=== PATIENT | female | born 1935 | race Caucasian/White ===

== ENCOUNTER → 2016-03-10 | Outpatient (CLI) | payer MEDICARE, OTHER ==
[2016-03-10 07:33] LABS: CH 31.2; CHCM 32.8; HCT 43.9 % (34.0-46.0); HDW 2.34; HGB 14.1 gm/dL (11.4-16.0); MCH 30.8 pg (25.0-35.0); MCHC 32.2 g/dL (31.0-37.0); MCV 95.5 fL (80.0-100.0); Mean Platelet Volume 6.9; RBC 4.59 m/uL (3.80-5.40); RDW 12.8 % (11.5-15.5); WBC 7.9 k/uL (3.8-10.6)
[2016-03-10 07:49] LABS: ALT 42 U/L (9-52); AST 21 U/L (14-36); Alkaline Phosphatase 41 U/L (38-126); Anion Gap 9 mmol/L; Blood Urea Nitrogen 13 mg/dL (7-17); Calcium 9.1 mg/dL (8.4-10.2); Carbon Dioxide 28 mmol/L (22-30); Chloride 105 mmol/L (98-107); Cholesterol 191 mg/dL (<200); Glucose 93 mg/dL (74-99); HDL Cholesterol 70 mg/dL (40-60); Non-African American GFR(MDRD) >60 (>60 ml/min/1.73 sqM); Potassium 4.3 mmol/L (3.5-5.1); Sodium 142 mmol/L (137-145); Total Bilirubin 1.1 mg/dL (0.2-1.3); Triglycerides 112 mg/dL (<150)
[2016-03-10 11:14] LABS: Amorphous Sediment,Urine Many /hpf; Appearance,Urine Turbid (Clear); Bilirubin,Urine Negative (Negative); Glucose,Urine (UA) Negative (Negative); Ketones,Urine Negative (Negative); Leukocyte Esterase,Urine Large (Negative); Mucus,Urine Few /hpf; Nitrite,Urine Negative (Negative); Particle Count 60149; Protein,Urine Trace (Negative); Specific Gravity,Urine 1.021 (1.001-1.035); UA Billing (MACRO vs. MICRO) MICRO; Urobilinogen,Urine <2.0 mg/dL (<2.0); WBC,Urine 59 /hpf (0-5)
[2016-03-10 12:31] LABS: Hemoglobin A1C 5.3 % (4.2-6.1)
--- NOTE | 2016-03-10 14:47 | BD ---
EXAMINATION TYPE: MG DEXA axial skeleton. DATE OF EXAM: 03/10/2016 8:04 AM COMPARISON: NONE CLINICAL HISTORY: Height: 67.5 IN Weight: 215 LBS FRAX RISK QUESTIONS: Alcohol (3 or more units per day): NO Family History (Parent hip fracture): NO Glucocorticoids (More than 3mos): NO (Ex: prednisone, prednisolone, methylprednisolone, dexamethasone, and hydrocortisone). History of Fracture in Adulthood: YES RT ELBOW Secondary Osteoporosis: 1. Type 1 Diabetes: NO 2. Hyperthyroidism: NO 3. Menopause before 45: YES AGE 37 4. Malnutrition: NO 5. Chronic liver disease: NO Rheumatoid Arthritis: NO Current Tobacco Use: NO RISK FACTORS HISTORY OF: Other Fractures since Age 52: YES RT ELBOW When: AGE 62 Active: YES Diet low in dairy products/other sources of calcium: YES Postmenopausal woman: YES AGE 37 Take estrogen and/or progesterone medications: NOT NOW How long: AGE 35 - 39 MEDICATIONS: Additional Medications: VIT D, CLARITIN EXAM MEASUREMENTS: Bone mineral densitometry was performed using the [employer] SPINE System. Bone mineral density as measured about the Lumbar spine is: ----- L1-L4(G/cm2): 1.300 T Score Values are as follows: ----- L2: -0.5 ----- L3: 2.4 ----- L4: 2.1 ----- L1-L4: 1.0 Bone mineral density has: Decreased -0.9% since study of: 01/17/2009 Bone mineral density about the R hip (g/cm2): 1.040 Bone mineral density about the L hip (g/cm2): 0.990 T Score values are as follows: -----R Neck: 0.0 -----L Neck: -0.3 -----R Intertrochanter: 2.0 -----L Intertrochanter: 1.3 Bone mineral density has: Increased 2.0% since study of: 01/17/2009 IMPRESSION: Normal (Values between +1 and -1 indicate normal bone mass) NOTE: T-SCORE=SD OF THE YOUNG ADULT MEAN.
--- NOTE | 2016-03-11 09:41 | MM ---
Reason for exam: screening (asymptomatic). Last mammogram was performed 1 year and 1 month ago. History: Patient is postmenopausal and has history of other cancer at age 75. Physical Findings: A clinical breast exam by your physician is recommended on an annual basis and results should be correlated with mammographic findings. MG 3D Screening Mammo W/Cad Bilateral CC and MLO view(s) were taken. Prior study comparison: February 19, 2015, bilateral MG screening mammo w CAD. February 09, 2014, bilateral MG screening mammo w CAD. There are scattered fibroglandular densities. Finding: There are typically benign vascular calcifications in both breasts. There is no discrete abnormality. ASSESSMENT: Benign, BI-RAD 2 RECOMMENDATION: Routine screening mammogram of both breasts in 1 year.
== END | disposition home or self-care (01) ==
LOC: RADMAMWWP 06:51
PROVIDERS: ATTEND Family Medicine
DX: Z12.31 Encounter for screening mammogram for malignant neoplasm of breast (principal); E55.9 Vitamin D deficiency, unspecified; E78.5 Hyperlipidemia, unspecified
CPT/HCPCS: 80061; 80053; 83036; 84443; 85027; 81001; 82306; 77080; 77063; G0202

== ENCOUNTER → 2017-03-16 | Outpatient (CLI) | payer MEDICARE, OTHER ==
[2017-03-16 09:28] LABS: HCT 41.8 % (34.0-46.0); HGB 13.6 gm/dL (11.4-16.0); MCH 31.4 pg (25.0-35.0); MCHC 32.6 g/dL (31.0-37.0); MCV 96.4 fL (80.0-100.0); Mean Platelet Volume 7.5; Platelet Count 233 k/uL (150-450); RBC 4.34 m/uL (3.80-5.40); RDW 12.6 % (11.5-15.5); WBC 5.1 k/uL (3.8-10.6)
[2017-03-16 09:46] LABS: ALT 32 U/L (9-52); AST 28 U/L (14-36); Alkaline Phosphatase 33 U/L (38-126); Anion Gap 8 mmol/L; Blood Urea Nitrogen 15 mg/dL (7-17); Calcium 9.4 mg/dL (8.4-10.2); Carbon Dioxide 29 mmol/L (22-30); Chloride 105 mmol/L (98-107); Cholesterol 208 mg/dL (<200); Glucose 94 mg/dL (74-99); HDL Cholesterol 67 mg/dL (40-60); LDL Cholesterol,Calculated 128 mg/dL (0-99); Potassium 4.6 mmol/L (3.5-5.1); Sodium 142 mmol/L (137-145); Total Protein 6.7 g/dL (6.3-8.2); Triglycerides 65 mg/dL (<150)
[2017-03-16 18:56] LABS: Hemoglobin A1C 5.4 % (4.0-6.0)
--- NOTE | 2017-03-17 11:00 | MM ---
Reason for exam: screening (asymptomatic). Last mammogram was performed 1 year ago. History: Patient is postmenopausal and has history of other cancer at age 75. Physical Findings: A clinical breast exam by your physician is recommended on an annual basis and results should be correlated with mammographic findings. MG 3D Screening Mammo W/Cad Bilateral CC and MLO view(s) were taken. Prior study comparison: March 10, 2016, bilateral MG 3d screening mammo w/cad. February 19, 2015, bilateral MG screening mammo w CAD. There are scattered fibroglandular densities. Finding: There are typically benign vascular calcifications in both breasts. There is no discrete abnormality. ASSESSMENT: Benign, BI-RAD 2 RECOMMENDATION: Routine screening mammogram of both breasts in 1 year.
== END | disposition home or self-care (01) ==
LOC: RADMAMWWP 08:33
PROVIDERS: ATTEND Family Medicine
DX: Z12.31 Encounter for screening mammogram for malignant neoplasm of breast (principal); I10 Essential (primary) hypertension; Z79.899 Other long term (current) drug therapy
CPT/HCPCS: 36415; 77063; 77067; 80053; 80061; 83036; 84443; 85027

== ENCOUNTER 2017-07-18 09:09 | Emergency (ER) | payer MEDICARE, OTHER ==
[2017-07-18 09:18] VITALS: TEMP 97.4
[2017-07-18] MEDS ORDERED: MORPHINE SULFATE 2 MG/ML SYRINGE IVP STA ×2 (09:43→10:31)
[2017-07-18] MEDS ORDERED: ONDANSETRON 4 MG/2 ML VIAL IVP STA (09:43)
[2017-07-18] MEDS ORDERED: SODIUM CHLORIDE 0.9% 1,000 ML IV STA (09:43)
--- NOTE | 2017-07-18 10:02 | ED ---
General Adult HPI <Sidney Oliveros - Last Filed: 07/18/17 12:45> - General Source: patient, RN notes reviewed Mode of arrival: ambulatory Limitations: no limitations <KrisNadeem - Last Filed: 07/18/17 13:48> - General Chief complaint: Abdominal Pain Stated complaint: Vomiting Time Seen by Provider: 07/18/17 09:34 - History of Present Illness Initial comments: Patient's an 82-year-old female severe past medical history for hypertension, presenting to the emergency room today with chief complaint of lower back pain radiating around to the abdomen. She states that she was at [employer] earlier this morning getting ready when she noticed that the pain was increasing. She states it's worse on the left side radiating around the left side of the abdomen. Patient currently rates it a 11/17. Patient has a history of kidney stones but states is unsure if this is similar pain. She does admit that she had an episode of nausea vomiting still feeling nauseated at this time. She denies any other complaints or symptoms currently. Patient denies any recent fever, chills, shortness of breath, chest pain, numbness or tingling, dysuria or hematuria, constipation or diarrhea, headaches or visual changes, or any other complaints. (Nadeem Ponce) - Related Data Home Medications Medication Instructions Recorded Confirmed Latanoprost [Xalatan 0.005%] 1 drop BOTH EYES HS 07/18/17 07/18/17 Losartan Potassium 100 mg PO DAILY 07/18/17 07/18/17 Omeprazole 20 mg PO DAILY 07/18/17 07/18/17 Renavit Eye Vitamin 1 tab PO BID 07/18/17 07/18/17 Previous Rx's Medication Instructions Recorded Hydrocodone/Acetaminophen [Goltry 1 each PO Q6HR PRN #12 tab 07/18/17 5-325] Ondansetron Odt [Zofran ODT] 4 mg PO Q8HR PRN #15 tab 07/18/17 Tamsulosin [Flomax] 0.4 mg PO DAILY #10 cap 07/18/17 Allergies Allergy/AdvReac Type Severity Reaction Status Date / Time Penicillins Allergy Swelling Verified 07/18/17 11:22 shellfish derived [Lobster] Allergy Unknown Verified 07/18/17 11:22 Sulfa (Sulfonamide Allergy Swelling Verified 07/18/17 11:22 Antibiotics) tuna oil Allergy Unknown Verified 07/18/17 11:22 Review of Systems ROS Other: All systems not noted in ROS Statement are negative. <Sidney Oliveros - Last Filed: 07/18/17 12:45> ROS Other: All systems not noted in ROS Statement are negative. <Nadeem Ponce - Last Filed: 07/18/17 13:48> ROS Statement: Those systems with pertinent positive or pertinent negative responses have been documented in the HPI. Past Medical History Past Medical History: Hypertension Additional Past Medical History / Comment(s): kidney stones, back problems, bulging discs and spurs, History of Any Multi-Drug Resistant Organisms: None Reported Past Surgical History: Appendectomy, Hysterectomy Additional Past Surgical History / Comment(s): vein stripped bilateral legs Past Psychological History: No Psychological Hx Reported Smoking Status: Never smoker Past Alcohol Use History: Rare Past Drug Use History: None Reported <Nadeem Ponce - Last Filed: 07/18/17 13:48> General Exam <Sidney Oliveros - Last Filed: 07/18/17 12:45> Limitations: no limitations <Nadeem Ponce - Last Filed: 07/18/17 13:48> - General Exam Comments Initial Comments: General: The patient is awake and alert, in no distress, and does not appear acutely ill. Eye: Pupils are equal, round and reactive to light, extra-ocular movements are intact. No nystagmus. There is normal conjunctiva bilaterally. No signs of icterus. Ears, nose, mouth and throat: There are moist mucous membranes and no oral lesions. Neck: The neck is supple, there is no tenderness or JVD. Cardiovascular: There is a regular rate and rhythm. No murmur, rub or gallop is appreciated. Respiratory: Lungs are clear to auscultation, respirations are non-labored, breath sounds are equal. No wheezes, stridor, rales, or rhonchi. Gastrointestinal: Soft, non-distended, non-tender abdomen without masses or organomegaly noted. There is no rebound or guarding present. No CVA tenderness. Musculoskeletal: Normal ROM, no tenderness. Strength 5/5. Sensation intact. Pulses equal bilaterally 2+. Neurological: A&O x 3. CN II-XII intact, There are no obvious motor or sensory deficits. Coordination appears grossly intact. Speech is normal. Skin: Skin is warm and dry and no rashes or lesions are noted. Psychiatric: Cooperative, appropriate mood & affect, normal judgment. (Nadeem Ponce) Course <Sidney Oliveros - Last Filed: 07/18/17 12:45> <Nadeem Ponce - Last Filed: 07/18/17 13:48> Vital Signs 07/18/17 07/18/17 07/18/17 09:14 09:35 10:29 Temperature 97.4 F L Pulse Rate 75 65 Respiratory 20 32 H 16 Rate Blood Pressure 180/90 202/88 O2 Sat by Pulse 99 98 Oximetry - Reevaluation(s) Reevaluation #1: 07/18/17 12:45 PA supervision: I did personally do a [id number] evaluation the patient did discuss the findings with the patient and her family. Patient does have left CVA/flank pain consistent with a kidney stone that is found on CAT scan. Patient states the pain initially was not much improved though she is not "screaming anymore". Further pain medication will be given as well as IV hydration. I do agree with the assessment and plan. (Sidney Oliveros) Medical Decision Making - Lab Data Result diagrams: 07/18/17 09:35 07/18/17 09:35 <Sidney Oliveros - Last Filed: 07/18/17 12:45> - Lab Data Result diagrams: 07/18/17 09:35 07/18/17 09:35 <Nadeem Ponce - Last Filed: 07/18/17 13:48> - Medical Decision Making Patient reexamined at this time shows no signs of distress. She states she still expresses some discomfort in left side of the lower back rate around to the front. Patient does note the pain is much improved. Patient CT of the abdomen pelvis does reveal a 2 mm stone in the left UVJ. Case was discussed and seen by family physician Dr. Oliveros. Patient will be discharged home with short prescription of pain medication, Flomax, nausea medication advised follow- up with urology within the next 2 days. Advised return if any symptoms increase or worsen or for new concerns. (Nadeem Ponce) - Lab Data Lab Results 07/18/17 07/18/17 07/18/17 Range/Units 09:35 09:35 09:35 WBC 7.7 (3.8-10.6) k/uL RBC 4.45 (3.80-5.40) m/uL Hgb 14.1 (11.4-16.0) gm/dL Hct 40.7 (34.0-46.0) % MCV 91.5 (80.0-100.0) fL MCH 31.6 (25.0-35.0) pg MCHC 34.5 (31.0-37.0) g/dL RDW 13.1 (11.5-15.5) % Plt Count 294 (150-450) k/uL Neutrophils % 66 % Lymphocytes % 23 % Monocytes % 5 % Eosinophils % 4 % Basophils % 1 % Neutrophils # 5.1 (1.3-7.7) k/uL Lymphocytes # 1.8 (1.0-4.8) k/uL Monocytes # 0.4 (0-1.0) k/uL Eosinophils # 0.3 (0-0.7) k/uL Basophils # 0.0 (0-0.2) k/uL PT (9.0-12.0) sec INR (<1.2) APTT (22.0-30.0) sec Sodium 141 (137-145) mmol/L Potassium 4.5 (3.5-5.1) mmol/L Chloride 102 (98-107) mmol/L Carbon Dioxide 25 (22-30) mmol/L Anion Gap 14 mmol/L BUN 21 H (7-17) mg/dL Creatinine 1.07 H (0.52-1.04) mg/dL Est GFR (CKD-EPI)AfAm 57 (>60 ml/min/1.73 sqM) Est GFR (CKD-EPI)NonAf 49 (>60 ml/min/1.73 sqM) Glucose 134 H (74-99) mg/dL Lactic Ac Sepsis Rflx Plasma Lactic Acid Silvino 3.0 H* (0.7-2.0) mmol/L Calcium 9.7 (8.4-10.2) mg/dL Total Bilirubin 0.9 (0.2-1.3) mg/dL AST 24 (14-36) U/L ALT 34 (9-52) U/L Alkaline Phosphatase 37 L (38-126) U/L Total Protein 7.2 (6.3-8.2) g/dL Albumin 4.5 (3.5-5.0) g/dL Amylase 66 (30-110) U/L Lipase 135 (23-300) U/L Urine Color Urine Appearance (Clear) Urine pH (5.0-8.0) Ur Specific [place] (1.001-1.035) Urine Protein (Negative) Urine Glucose (UA) (Negative) Urine Ketones (Negative) Urine Blood (Negative) Urine Nitrite (Negative) Urine Bilirubin (Negative) Urine Urobilinogen (<2.0) mg/dL Ur Leukocyte Esterase (Negative) Urine RBC (0-5) /hpf Urine WBC (0-5) /hpf Ur Squamous Epith Cells (0-4) /hpf Hyaline Casts (0-2) /lpf Urine Mucus (None) /hpf 07/18/17 07/18/17 07/18/17 Range/Units 09:35 10:22 10:49 WBC (3.8-10.6) k/uL RBC (3.80-5.40) m/uL Hgb (11.4-16.0) gm/dL Hct (34.0-46.0) % MCV (80.0-100.0) fL MCH (25.0-35.0) pg MCHC (31.0-37.0) g/dL RDW (11.5-15.5) % Plt Count (150-450) k/uL Neutrophils % % Lymphocytes % % Monocytes % % Eosinophils % % Basophils % % Neutrophils # (1.3-7.7) k/uL Lymphocytes # (1.0-4.8) k/uL Monocytes # (0-1.0) k/uL Eosinophils # (0-0.7) k/uL Basophils # (0-0.2) k/uL PT 10.3 (9.0-12.0) sec INR 1.1 (<1.2) APTT 21.1 L (22.0-30.0) sec Sodium (137-145) mmol/L Potassium (3.5-5.1) mmol/L Chloride (98-107) mmol/L Carbon Dioxide (22-30) mmol/L Anion Gap mmol/L BUN (7-17) mg/dL Creatinine (0.52-1.04) mg/dL Est GFR (CKD-EPI)AfAm (>60 ml/min/1.73 sqM) Est GFR (CKD-EPI)NonAf (>60 ml/min/1.73 sqM) Glucose (74-99) mg/dL Lactic Ac Sepsis Rflx Y Plasma Lactic Acid Silvino (0.7-2.0) mmol/L Calcium (8.4-10.2) mg/dL Total Bilirubin (0.2-1.3) mg/dL AST (14-36) U/L ALT (9-52) U/L Alkaline Phosphatase (38-126) U/L Total Protein (6.3-8.2) g/dL Albumin (3.5-5.0) g/dL Amylase (30-110) U/L Lipase (23-300) U/L Urine Color Yellow Urine Appearance Clear (Clear) Urine pH 7.5 (5.0-8.0) Ur Specific [place] 1.021 (1.001-1.035) Urine Protein 1+ H (Negative) Urine Glucose (UA) Negative (Negative) Urine Ketones 2+ H (Negative) Urine Blood Moderate H (Negative) Urine Nitrite Negative (Negative) Urine Bilirubin Negative (Negative) Urine Urobilinogen <2.0 (<2.0) mg/dL Ur Leukocyte Esterase Moderate H (Negative) Urine RBC 127 H (0-5) /hpf Urine WBC 13 H (0-5) /hpf Ur Squamous Epith Cells 3 (0-4) /hpf Hyaline Casts 4 H (0-2) /lpf Urine Mucus Rare H (None) /hpf Disposition <Sidney Oliveros - Last Filed: 07/18/17 12:45> Is patient prescribed a controlled substance at d/c from ED?: Yes When asked, does pt state using other controlled substances?: No If prescribed controlled substance>3 days was MAPS reviewed?: Prescribed <3 Days Time of Disposition: 13:47 <Nadeem Ponce - Last Filed: 07/18/17 13:48> Clinical Impression: Kidney stone Disposition: HOME SELF-CARE Condition: Good Instructions: Kidney Stones (ED) Additional Instructions: Please use medication as prescribed follow-up the family doctor or urologist of the next 2 days. Please return here to the emergency room for any symptoms increase worsen appropriate concerns. Prescriptions: Hydrocodone/Acetaminophen [Goltry 5-325] 1 each PO Q6HR PRN #12 tab PRN Reason: Pain Ondansetron Odt [Zofran ODT] 4 mg PO Q8HR PRN #15 tab PRN Reason: Nausea Tamsulosin [Flomax] 0.4 mg PO DAILY #10 cap Referrals: Ina Wilson MD [Primary Care Provider] - 1-2 days Neftaly Fall MD [STAFF PHYSICIAN] - 1-2 days
[2017-07-18 10:11] LABS: Basophils % (A) 1 %; Eosinophils # (A) 0.3 k/uL (0-0.7); Eosinophils % (A) 4 %; HCT 40.7 % (34.0-46.0); HGB 14.1 gm/dL (11.4-16.0); Lymphocytes # (A) 1.8 k/uL (1.0-4.8); Lymphocytes % (A) 23 %; MCH 31.6 pg (25.0-35.0); MCHC 34.5 g/dL (31.0-37.0); MCV 91.5 fL (80.0-100.0); Monocytes # (A) 0.4 k/uL (0-1.0); Monocytes % (A) 5 %; Neutrophils # (A) 5.1 k/uL (1.3-7.7); Neutrophils % (A) 66 %; Platelet Count 294 k/uL (150-450); RBC 4.45 m/uL (3.80-5.40); RDW 13.1 % (11.5-15.5); WBC 7.7 k/uL (3.8-10.6)
[2017-07-18 10:20] LABS: Albumin 4.5 g/dL (3.5-5.0); Calcium 9.7 mg/dL (8.4-10.2); Potassium 4.5 mmol/L (3.5-5.1); Total Bilirubin 0.9 mg/dL (0.2-1.3); Total Protein 7.2 g/dL (6.3-8.2)
--- NOTE | 2017-07-18 10:22 | CT ---
EXAMINATION TYPE: CT abdomen pelvis wo con DATE OF EXAM: 07/18/2017 COMPARISON: NONE HISTORY: Left sided flank pain with nausea CT DLP: 1036 mGycm Automated exposure control for dose reduction was used. TECHNIQUE: Helical acquisition of images was performed from the lung bases through the pelvis. FINDINGS: KIDNEYS, URETERS, AND BLADDER: There is mild/moderate left-sided hydronephrosis and hydroureter down to a 2 mm obstructing calcification at the proximal left ureterovesical junction. The hydronephrosis is accompanied with mild renal enlargement and mild/moderate subcapsular/perirenal edematous change. There are no drainable fluid collections. No gas collections. There are no other calcifications withi n the kidneys or ureters or bladder. LUNG BASES: No significant abnormality is appreciated. LIVER/GB: No significant abnormality is appreciated. PANCREAS: No significant abnormality is seen. SPLEEN: No significant abnormality is seen. ADRENALS: No significant abnormality is seen PERITONEAL CAVITY: No free air is visualized ABDOMINAL ADENOPATHY: None visualized REPRODUCTIVE ORGANS: No significant abnormality is seen PELVIC ADENOPATHY: None visualized. OSSEOUS STRUCTURES: No significant abnormality is seen. BOWEL: Unremarkable. IMPRESSION: OBSTRUCTIVE LEFT UROPATHY.
[2017-07-18 10:26] LABS: INR 1.1 (<1.2); Prothrombin Time 10.3 sec (9.0-12.0)
[2017-07-18 10:41] LABS: Partial Thromboplastin Time 21.1 sec (22.0-30.0)
[2017-07-18 11:07] LABS: Appearance,Urine Clear (Clear); Bilirubin,Urine Negative (Negative); Blood,Urine Moderate (Negative); Color,Urine Yellow; Glucose,Urine (UA) Negative (Negative); Hyaline Casts,Urine 4 /lpf (0-2); Ketones,Urine 2+ (Negative); Leukocyte Esterase,Urine Moderate (Negative); Mucus,Urine Rare /hpf; Nitrite,Urine Negative (Negative); PH, Urine 7.5 (5.0-8.0); Protein,Urine 1+ (Negative); RBC,Urine 127 /hpf (0-5); Specific Gravity,Urine 1.021 (1.001-1.035); Squamous Epithelial Cell,Urine 3 /hpf (0-4); Urobilinogen,Urine <2.0 mg/dL (<2.0); WBC,Urine 13 /hpf (0-5)
[2017-07-18] MEDS ORDERED: KETOROLAC 30 MG/ML 1 ML VIAL IVP STA (11:41)
[2017-07-18] MEDS ORDERED: TAMSULOSIN 0.4 MG CAP.ER.24H PO STA (11:41)
[2017-07-18] MEDS ORDERED: SODIUM CHLORIDE 0.9% 500 ML IV STA (12:16)
[2017-07-18] MEDS ORDERED: ACETAMINOPHEN IV (For NPO) 1,000 MG in EMPTY BAG 1 BAG IVPB STA (12:17)
[2017-07-18] MEDS ORDERED: fentaNYL (PF) 50 MCG/ML 2 ML AMP IV STA (13:44)
[2017-07-18 13:58] VITALS: BP 190/95; PULSE 67; RESP 18
== END 2017-07-18 14:26 | disposition home or self-care (01) ==
LOC: EC 09:09
DX: N20.0 Calculus of kidney (principal); I10 Essential (primary) hypertension; Z79.899 Other long term (current) drug therapy; Z88.0 Allergy status to penicillin; Z91.013 Allergy to seafood; Z88.2 Allergy status to sulfonamides; Z91.09 Other allergy status, other than to drugs and biological substances
CPT/HCPCS: 36415; 80053; 82150; 83605; 83690; 85025; 85610; 85730; 81001; 87086; 74176; 99284; 96374; 96375 ×4; 96376; 96361 ×3; J2405; J3010; J1885; J2270; J0131

== ENCOUNTER → 2018-04-29 | Outpatient (CLI) | payer MEDICARE, OTHER ==
[2018-04-29 08:42] LABS: Calcium 9.4 mg/dL (8.4-10.2); Potassium 4.9 mmol/L (3.5-5.1); Total Bilirubin 0.8 mg/dL (0.2-1.3); Total Protein 6.9 g/dL (6.3-8.2)
[2018-04-29 08:54] LABS: HCT 42.2 % (34.0-46.0); HGB 13.4 gm/dL (11.4-16.0); MCH 30.4 pg (25.0-35.0); MCHC 31.8 g/dL (31.0-37.0); MCV 95.9 fL (80.0-100.0); Mean Platelet Volume 7.1; Platelet Count 252 k/uL (150-450); RDW 13.2 % (11.5-15.5); WBC 5.1 k/uL (3.8-10.6)
--- NOTE | 2018-04-29 11:08 | MM ---
Reason for exam: screening (asymptomatic). Last mammogram was performed 1 year and 2 months ago. History: Patient is postmenopausal and has history of other cancer at age 75. Physical Findings: A clinical breast exam by your physician is recommended on an annual basis and results should be correlated with mammographic findings. MG 3D Screening Mammo W/Cad Bilateral CC and MLO view(s) were taken. Prior study comparison: March 16, 2017, bilateral MG 3d screening mammo w/cad. March 10, 2016, bilateral MG 3d screening mammo w/cad. The breast tissue is heterogeneously dense. This may lower the sensitivity of mammography. There are benign appearing round vascular calcifications bilaterally. There is no discrete abnormality. ASSESSMENT: Benign, BI-RAD 2 RECOMMENDATION: Routine screening mammogram of both breasts in 1 year.
[2018-04-29 20:04] LABS: Hemoglobin A1C 5.7 % (4.0-6.0)
== END | disposition home or self-care (01) ==
LOC: RADMAMWWP 07:39
PROVIDERS: ATTEND Family Medicine
DX: Z12.31 Encounter for screening mammogram for malignant neoplasm of breast (principal); I10 Essential (primary) hypertension; Z79.899 Other long term (current) drug therapy
CPT/HCPCS: 36415; 77063; 77067; 80053; 80061; 83036; 85027

== ENCOUNTER 2019-03-10 11:18 | Emergency (ER) | payer MEDICARE, OTHER ==
[2019-03-10 11:24] VITALS: RESP 18; TEMP 97.9
[2019-03-10] MEDS ORDERED: HYDROmorphone 1 MG/ML 1 ML SYRINGE IVP STA (11:51)
[2019-03-10] MEDS ORDERED: PANTOPRAZOLE 40 MG/10 ML VIAL IVP STA (11:51)
[2019-03-10] MEDS ORDERED: Acetaminophen-Codeine 300-30mg TAB PO STA (11:51)
[2019-03-10] MEDS ORDERED: SODIUM CHLORIDE 0.9% 1,000 ML IV STA (11:51)
[2019-03-10] MEDS ORDERED: ONDANSETRON 4 MG/2 ML VIAL IVP STA (11:54)
--- NOTE | 2019-03-10 11:54 | ED ---
Abdominal Pain HPI - General Chief Complaint: Abdominal Pain Stated Complaint: abdominal pain/vomiting Time Seen by Provider: 03/10/19 11:42 Source: patient Mode of arrival: ambulatory Limitations: no limitations - History of Present Illness Initial Comments: Patient is an 83-year-old female with history of kidney stones and chronic back pain presenting to the emergency department with a chief complaint of back pain and abdominal pain. Patient reports she developed sudden onset left paraspinal pain in the lumbar region that radiates across the left flank region and to the groin. Patient states this feels somewhat like her pre-his kidney stones. Patient does report increased frequency and urgency but denies any dysuria. Does report nausea with one episode of nonbilious, nonbloody vomiting. Denies any diarrhea. Denies night sweats fevers or chills. Denies hematuria, hematochezia or melena. Denies any chest pain or shortness of breath. - Related Data Home Medications Medication Instructions Recorded Confirmed Latanoprost [Xalatan 0.005%] 1 drop BOTH EYES HS 07/18/17 07/18/17 Losartan Potassium 100 mg PO DAILY 07/18/17 07/18/17 Omeprazole 20 mg PO DAILY 07/18/17 07/18/17 Renavit Eye Vitamin 1 tab PO BID 07/18/17 07/18/17 Previous Rx's Medication Instructions Recorded Hydrocodone/Acetaminophen [[place] 1 each PO Q6HR PRN #12 tab 07/18/17 5-325] Ondansetron Odt [Zofran ODT] 4 mg PO Q8HR PRN #15 tab 07/18/17 Tamsulosin [Flomax] 0.4 mg PO DAILY #10 cap 07/18/17 Allergies Allergy/AdvReac Type Severity Reaction Status Date / Time Penicillins Allergy Swelling Verified 03/10/19 11:24 shellfish derived [Lobster] Allergy Unknown Verified 03/10/19 11:24 Sulfa (Sulfonamide Allergy Swelling Verified 03/10/19 11:24 Antibiotics) tuna oil Allergy Unknown Verified 03/10/19 11:24 Review of Systems ROS Statement: Those systems with pertinent positive or pertinent negative responses have been documented in the HPI. ROS Other: All systems not noted in ROS Statement are negative. Past Medical History Past Medical History: Hypertension Additional Past Medical History / Comment(s): kidney stones, back problems, bulging discs and spurs, History of Any Multi-Drug Resistant Organisms: None Reported Past Surgical History: Appendectomy, Hysterectomy Additional Past Surgical History / Comment(s): vein stripped bilateral legs Past Psychological History: No Psychological Hx Reported Smoking Status: Never smoker Past Alcohol Use History: Rare Past Drug Use History: None Reported General Exam Limitations: no limitations General appearance: alert, in no apparent distress, obese Head exam: Present: atraumatic, normocephalic, normal inspection Eye exam: Present: normal appearance, PERRL, EOMI Pupils: Present: normal accommodation ENT exam: Present: normal exam, mucous membranes moist Neck exam: Present: normal inspection, full ROM Respiratory exam: Present: normal lung sounds bilaterally. Absent: respiratory distress, rales Cardiovascular Exam: Present: regular rate, normal rhythm, normal heart sounds GI/Abdominal exam: Present: soft, tenderness (Left lower quadrant left groin left flank pain.). Absent: distended Extremities exam: Present: normal inspection, full ROM Back exam: Present: normal inspection, tenderness, paraspinal tenderness (Left paraspinal tenderness in the lumbar region.). Absent: full ROM (Limited range of motion with extension) Neurological exam: Present: alert, oriented X3 Psychiatric exam: Present: normal affect, normal mood Skin exam: Present: warm, dry, intact, normal color Course Vital Signs 03/10/19 11:22 Temperature 97.9 F Pulse Rate 69 Respiratory 18 Rate Blood Pressure 182/79 O2 Sat by Pulse 96 Oximetry Medical Decision Making - Medical Decision Making Patient is an 83-year-old female presenting to the emergency department with a chief complaint of abdominal pain. In the ED patient was found to have left- sided CVA tenderness along with left flank pain. Rest of physical examination was unremarkable. Patient was given analgesia, fluids and antiemetics. On reevaluation patient reports improvement in symptoms. CT does show a 2 mm renal stone at the UVJ with mild left-sided hydronephrosis. CBC does indicate mild leukocytosis secondary to vomiting. Patient advised to drink lots of fluids. Given Tylenol 3 starter pack for pain control. UA does show moderate amounts of blood and red blood cells. Patient advised to follow-up with urology. Strict return parameters were thoroughly discussed with patient was understanding and agreeable. Case discussed with physician. - Lab Data Result diagrams: 03/10/19 11:58 03/10/19 11:58 Lab Results 03/10/19 03/10/19 03/10/19 Range/Units 11:58 11:58 11:58 WBC 12.4 H (3.8-10.6) k/uL RBC 4.45 (3.80-5.40) m/uL Hgb 13.8 (11.4-16.0) gm/dL Hct 42.0 (34.0-46.0) % MCV 94.3 (80.0-100.0) fL MCH 31.1 (25.0-35.0) pg MCHC 32.9 (31.0-37.0) g/dL RDW 12.6 (11.5-15.5) % Plt Count 283 (150-450) k/uL Neutrophils % 88 % Lymphocytes % 7 % Monocytes % 3 % Eosinophils % 1 % Basophils % 1 % Neutrophils # 10.9 H (1.3-7.7) k/uL Lymphocytes # 0.9 L (1.0-4.8) k/uL Monocytes # 0.4 (0-1.0) k/uL Eosinophils # 0.1 (0-0.7) k/uL Basophils # 0.1 (0-0.2) k/uL Sodium 139 (137-145) mmol/L Potassium 4.8 (3.5-5.1) mmol/L Chloride 108 H (98-107) mmol/L Carbon Dioxide 23 (22-30) mmol/L Anion Gap 8 mmol/L BUN 27 H (7-17) mg/dL Creatinine 1.04 (0.52-1.04) mg/dL Est GFR (CKD-EPI)AfAm 58 (>60 ml/min/1.73 sqM) Est GFR (CKD-EPI)NonAf 51 (>60 ml/min/1.73 sqM) Glucose 145 H (74-99) mg/dL Calcium 9.2 (8.4-10.2) mg/dL Total Bilirubin 0.8 (0.2-1.3) mg/dL AST 35 (14-36) U/L ALT 29 (4-34) U/L Alkaline Phosphatase 36 L (38-126) U/L Total Protein 7.4 (6.3-8.2) g/dL Albumin 4.3 (3.5-5.0) g/dL Amylase 63 (30-110) U/L Lipase 121 (23-300) U/L Urine Color Yellow Urine Appearance Cloudy H (Clear) Urine pH 5.5 (5.0-8.0) Ur Specific [place] 1.028 (1.001-1.035) Urine Protein 1+ H (Negative) Urine Glucose (UA) Negative (Negative) Urine Ketones Negative (Negative) Urine Blood Moderate H (Negative) Urine Nitrite Negative (Negative) Urine Bilirubin Negative (Negative) Urine Urobilinogen <2.0 (<2.0) mg/dL Ur Leukocyte Esterase Moderate H (Negative) Urine RBC 59 H (0-5) /hpf Urine WBC 10 H (0-5) /hpf Ur Squamous Epith Cells 5 H (0-4) /hpf Urine Bacteria Occasional H (None) /hpf Urine Mucus Rare H (None) /hpf Disposition Clinical Impression: Renal stone, Nausea & vomiting Disposition: HOME SELF-CARE Condition: Stable Instructions (If sedation given, give patient instructions): Kidney Stones (ED) Additional Instructions: Please take medication as directed. Follow-up with a urologist. Drink a lot of fluids. Return to emergency department if symptoms worsen. Is patient prescribed a controlled substance at d/c from ED?: No Referrals: Christel Wakefield MD [Primary Care Provider] - 1-2 days Neftaly Fall MD [STAFF PHYSICIAN] - 1-2 days Time of Disposition: 14:03
[2019-03-10] MEDS ORDERED: KETOROLAC 30 MG/ML 1 ML VIAL IVP STA (12:02)
[2019-03-10 12:11] LABS: Basophils # (A) 0.1 k/uL (0-0.2); Basophils % (A) 1 %; Eosinophils # (A) 0.1 k/uL (0-0.7); Eosinophils % (A) 1 %; HGB 13.8 gm/dL (11.4-16.0); Lymphocytes # (A) 0.9 k/uL (1.0-4.8); Lymphocytes % (A) 7 %; MCH 31.1 pg (25.0-35.0); MCHC 32.9 g/dL (31.0-37.0); MCV 94.3 fL (80.0-100.0); Mean Platelet Volume 7.6; Monocytes # (A) 0.4 k/uL (0-1.0); Monocytes % (A) 3 %; Neutrophils # (A) 10.9 k/uL (1.3-7.7); Neutrophils % (A) 88 %; Platelet Count 283 k/uL (150-450); RBC 4.45 m/uL (3.80-5.40); RDW 12.6 % (11.5-15.5); WBC 12.4 k/uL (3.8-10.6)
[2019-03-10 12:20] LABS: Appearance,Urine Cloudy (Clear); Bacteria,Urine Occasional /hpf; Bilirubin,Urine Negative (Negative); Blood,Urine Moderate (Negative); Color,Urine Yellow; Glucose,Urine (UA) Negative (Negative); Ketones,Urine Negative (Negative); Leukocyte Esterase,Urine Moderate (Negative); Mucus,Urine Rare /hpf; Nitrite,Urine Negative (Negative); PH, Urine 5.5 (5.0-8.0); Protein,Urine 1+ (Negative); RBC,Urine 59 /hpf (0-5); Specific Gravity,Urine 1.028 (1.001-1.035); Squamous Epithelial Cell,Urine 5 /hpf (0-4); Urobilinogen,Urine <2.0 mg/dL (<2.0); WBC,Urine 10 /hpf (0-5)
[2019-03-10 12:21] LABS: Albumin 4.3 g/dL (3.5-5.0); Calcium 9.2 mg/dL (8.4-10.2); Potassium 4.8 mmol/L (3.5-5.1); Total Bilirubin 0.8 mg/dL (0.2-1.3); Total Protein 7.4 g/dL (6.3-8.2)
[2019-03-10] MEDS ORDERED: MORPHINE SULFATE 4 MG/ML SYRINGE IVP STA (13:11)
--- NOTE | 2019-03-10 13:16 | CT ---
EXAMINATION TYPE: CT abdomen pelvis w con DATE OF EXAM: 03/10/2019 COMPARISON: 07/18/2017 HISTORY: Left sided pain CT DLP: 1853.6 mGycm CONTRAST: CT scan of the abdomen and pelvis is performed without Oral Contrast and with IV Contrast, patient in jected with 100 mL of Isovue 300. FINDINGS: LUNG BASES-: No visible nodule. No infiltrate. LIVER/GB: No calcified gallstones. No space occupying hepatic lesion. Biliary tree is of normal ca liber. PANCREAS: No inflammation. No distinct mass. SPLEEN: No splenic enlargement. No lesion seen. ADRENALS: No nodule. No thickening. KIDNEYS/BLADDER :mild left-sided hydronephrosis suggested with the tiny 2 mm left UVJ calculus. No ad ditional calculi seen. 1 cm left renal cyst. No distinct solid renal mass. Urinary bladder grossly u nremarkable. BOWEL: Normal bowel caliber. No inflammation. Sigmoid diverticulosis without diverticulitis. GENITAL ORGANS: No gross abnormality. LYMPH NODES: No greater than 1cm abdominal or pelvic lymph nodes are appreciated. AORTA: No significant abnormality. OSSEOUS STRUCTURES: No significant abnormality is seen. OTHER: No significant additional abnormality is seen. IMPRESSION: 1. mild left-sided hydronephrosis suggested with the tiny 2 mm left UVJ calculus.
[2019-03-10] MEDS ORDERED: ACET/COD 300 MG/30 MG STARTER PACK 6 TAB BTL PO STA (14:01)
[2019-03-10 14:31] VITALS: BP 154/77; PULSE 61
== END 2019-03-10 14:32 | disposition home or self-care (01) ==
LOC: EC 11:18
DX: N13.2 Hydronephrosis with renal and ureteral calculous obstruction (principal); I10 Essential (primary) hypertension; Z79.899 Other long term (current) drug therapy; Z88.0 Allergy status to penicillin; Z88.2 Allergy status to sulfonamides; Z91.013 Allergy to seafood; Z90.89 Acquired absence of other organs; Z90.710 Acquired absence of both cervix and uterus
CPT/HCPCS: 99284 ×2; 96374 ×2; 96375 ×4; 96361 ×2; 36415; 80053; 82150; 83690; 85025; 81001; 74177; J2270; J2405; J1885; C9113; Q9967

== ENCOUNTER → 2019-08-17 | Outpatient (CLI) | payer MEDICARE, OTHER ==
--- NOTE | 2019-08-17 13:49 | MM ---
Reason for exam: screening (asymptomatic). Last mammogram was performed 1 year and 4 months ago. History: Patient is postmenopausal and has history of other cancer at age 75. Took estrogen for 3 years. Physical Findings: A clinical breast exam by your physician is recommended on an annual basis and results should be correlated with mammographic findings. MG 3D Screening Mammo W/Cad Bilateral CC and MLO view(s) were taken. Prior study comparison: April 29, 2018, bilateral MG 3d screening mammo w/cad. March 16, 2017, bilateral MG 3d screening mammo w/cad. The breast tissue is heterogeneously dense. This may lower the sensitivity of mammography. There is no discrete abnormality. No significant changes when compared with prior studies. ASSESSMENT: Negative, BI-RAD 1 RECOMMENDATION: Routine screening mammogram of both breasts in 1 year.
== END | disposition home or self-care (01) ==
LOC: RADMAMWWP 08:38
PROVIDERS: ATTEND Family Medicine
DX: Z12.39 Encounter for other screening for malignant neoplasm of breast (principal)
CPT/HCPCS: 77063; 77067

== ENCOUNTER → 2020-09-13 | Outpatient (CLI) | payer MEDICARE, OTHER ==
--- NOTE | 2020-09-17 08:52 | MM ---
Reason for exam: screening (asymptomatic). Last mammogram was performed 1 year and 1 month ago. History: Patient is postmenopausal and has history of other cancer at age 75. Took estrogen for 3 years. Physical Findings: A clinical breast exam by your physician is recommended on an annual basis and results should be correlated with mammographic findings. MG 3D Screening Mammo W/Cad Bilateral CC and MLO view(s) were taken. Prior study comparison: August 17, 2019, bilateral MG 3d screening mammo w/cad. April 29, 2018, bilateral MG 3d screening mammo w/cad. There are scattered fibroglandular densities. No significant changes when compared with prior studies. ASSESSMENT: Negative, BI-RAD 1 RECOMMENDATION: Routine screening mammogram of both breasts in 1 year.
== END | disposition home or self-care (01) ==
LOC: RADMAMWWP 10:35
PROVIDERS: ATTEND Family Medicine
DX: Z12.31 Encounter for screening mammogram for malignant neoplasm of breast (principal); Z79.818 Long term (current) use of other agents affecting estrogen receptors and estrogen levels; Z78.0 Asymptomatic menopausal state; Z85.9 Personal history of malignant neoplasm, unspecified
CPT/HCPCS: 77063; 77067

== ENCOUNTER → 2021-06-04 | Outpatient (CLI) | payer MEDICARE, OTHER ==
[2021-06-04 14:05] VITALS: BP 158/85; PULSE 74; RESP 18; TEMP 98.5
--- NOTE | 2021-06-04 14:28 | P.CON ---
Consult Note - . 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 Patient states her lower back pain a 6 out of 10 in intensity, constant, achy in character localized in the lower aspects of her lumbar spine where it meets her tailbone and radiation of pain to the right side of her lumbar spine and the left lower extremity. Pain is provoked with cold weather, standing for 10 minutes or walking for 5 minutes. Pain is relieved with medications (Tylenol, ibuprofen), topicals, pain patches, injections in the past, ice, physical therapy which she is currently in for carpal tunnel syndrome, chiropractic treatments 5 years ago, use of a lumbar support brace, repositioning and rest. PMH: HTN, Vitamin D Deficiency, Glaucoma PSH: Hysterectomy, BL Carpal Tunnel Release SH: Non smoker, occasional ETOH use, no illicit drug use. Pt is not .0 FH: Non contributory All: See list Meds: See list REVIEW OF ORGAN SYSTEMS: CONSTITUTIONAL: No fevers or chills. No recent weight loss. HEENT: No visual acuity loss, eye pain, difficulties with hearing. No nosebleeds. No difficulty swallowing. RESPIRATORY: Denies any troubles with breathing or dyspnea on exertion. CARDIOVASCULAR: Denies any chest pain, palpitations, or recent heart attacks. GASTROINTESTINAL: Denies fatty food intolerance. Has change in bowel habits and gas bloat. GENITOURINARY: Denies any blood in urine. Has increased urinary frequency. NEUROLOGICAL: + numbness and tingling along the distal extremities. No seizure disorders or headaches. MUSCULOSKELETAL: + back pain SKIN: No skin cancer. No rash. PSYCHIATRIC: Denies current depression or suicidal thoughts. ENDOCRINE: Denies current thyroid disorders. Denies any blood sugar glucose intolerance. HEME/LYMPHATIC: Denies any lumps and bumps around the neck. History of deep venous thrombosis. ALLERGY/IMMUNOLOGY: No immunoglobulin therapy. No immune deficiencies. BREAST: Denies current breast lumps, pain or nipple discharge. Physical Examinations : Constitutional : Cooperative , not in acute distress . HEENT: Neck supple. No Lymphadenopathy. Normal thyroid size . Eyes no ptosis , no icterus, no photophobia . Hearing intact. Normal oropharynx. No Thrush. Respiratory : Chest clear to auscultations bilaterally. No wheezing. No rhonchi. Cardiovascular : Regular rate and rhythm , S1 / S2. No S3 . No S4. Gastrointestinal : Abdomen soft. No tenderness. Bowel sounds x 4. No organomegaly . Genitourinary : Deferred. Neurologic : Cranial nerve II to XII intact. No focal neurological deficits. Psychiatric : alert & oriented x 3. Matching mood & appropriate affect. Judgment & insight intact. Lymphatic No Lymphadenopathy. Musculoskeletal : Cervical Spine Motor strength in the deltoid and biceps: Normal right side. Normal Left side Motor strength biceps and the wrist extensors: Normal right side . Normal left side Motor strength in the triceps muscle: Normal right side. Normal left side Deep tendon reflexes: Normal at the biceps. Normal at Brachioradialis. Normal at triceps Cervical facet loading test: positive bilaterally Spurling test: positive bilaterally Neck distraction test: positive bilaterally Kalpana sign: positive bilaterally Lumbar spine Motor strength lower extremities ,thigh and legs 5/5 Right side , 5/5 Left side Deep tendon reflexes : Normal Knee Jerk. Normal Ankle Jerk Vertebral body tenderness over Lumbar facet Loading Test: positive Right / positive Left Range of motion of the lumbar spine Flexion 30 degrees, extension 10 degrees Straight Leg Raise test: Left/ Right positive at degree Leonard test: positive right / positive left. Severe tenderness over the Sacroiliac joint on the Right / Left sides Gaenslen test: positive R>L Seated flexion test: positive bilaterally. Imaging: MRI without contrast from 11/27/2019 reviewed. Assessment/ Plan : Sacroiliitis, Lumbar Disc Herniation, Lumbar Facet Arthropathy Recommendation of BL SI joint injection with TPIs of L3-L5 BL. Risks, benefits of procedure discussed and patient verbalized understanding. Denies aspirin or anti- coagulant use. Denies medical history of diabetes. All questions answered. I have spent greater than 50 minutes on patient care today. Dr Silva was available by phone for the evaluation of this patient. The time was used to review the medical records including relevant urine studies and Prescription history (MAPs), review of the available imaging, evaluation and examination of the patient, coordination of care with the medical staff and if applicable referring physicians, as well as creation of the medical record PQRS Measure Charge Sheet Mode of Arrival: Ambulatory - Pain Location Right Lower Back Non-Pharmacological Interventions: Chiropractic Treatment, Elevation, Ice, Inactivity, Physical Therapy, Sitting Pharmacological Interventions: PRN Medication, Topical Medication PQRS Narrative: Smoking Status Never smoker Blood Pressure 158/85 Pain Intensity [Right Lower 6 Back] Scale Used Numeric (1 - 10) Hx Alcohol Use (MH) No Home Medications: Ambulatory Orders Hydrocodone/Acetaminophen [Salem 5-325] 1 each PO Q6HR PRN #12 tab 07/18/17 Latanoprost [Xalatan 0.005%] 1 drop BOTH EYES HS 07/18/17 Losartan Potassium 100 mg PO DAILY 07/18/17 Omeprazole 20 mg PO DAILY 07/18/17 Ondansetron Odt [Zofran ODT] 4 mg PO Q8HR PRN #15 tab 07/18/17 Renavit Eye Vitamin 1 tab PO BID 07/18/17 Tamsulosin [Flomax] 0.4 mg PO DAILY #10 cap 07/18/17
== END ==
LOC: PNWHC3 13:16
PROVIDERS: ATTEND Specialist
DX: M51.26 Other intervertebral disc displacement, lumbar region (principal); M46.1 Sacroiliitis, not elsewhere classified; M47.816 Spondylosis without myelopathy or radiculopathy, lumbar region; I10 Essential (primary) hypertension; Z88.0 Allergy status to penicillin; Z91.013 Allergy to seafood; Z88.2 Allergy status to sulfonamides
CPT/HCPCS: 99211

== ENCOUNTER 2021-07-01 08:27 | Day surgery (SDC) | payer MEDICARE, OTHER ==
[~2021-07-01 08:27] MED LIST: LACTATED RINGERS 1,000 ML IV SCH
[2021-07-01] MEDS ORDERED: LACTATED RINGERS 1,000 ML IV ONE (08:50)
[2021-07-01 08:52] VITALS: TEMP 97.8
[2021-07-01] MEDS ORDERED: IOPAMIDOL M200 10 ML VIAL ONE (08:54)
[2021-07-01] MEDS ORDERED: ROPIVACAINE 5MG/ML 20ML VIAL ONE (08:54)
[2021-07-01] MEDS ORDERED: MIDAZOLAM 2 MG/2 ML VIAL ONE (08:54)
[2021-07-01] MEDS ORDERED: fentaNYL (PF) 50 MCG/ML 2 ML AMP ONE (08:54)
[2021-07-01] MEDS ORDERED: methylPREDNISolone ACETATE 40 MG/ML 1 ML VIAL ONE (08:54)
--- NOTE | 2021-07-01 08:55 | P.PCN ---
Date of Procedure: 07/01/21 Description of Procedure: Procedure: Sacroiliac joint injection bilateral Preoperative diagnosis: Sacroiliitis Postoperative diagnosis: Sacroiliitis Imaging: Fluoroscopy was used, images where saved to the medical record Complications: none Anesthesia: 1% lidocaine 5cc + Versed and fentanyl Description of the procedure: procedure risk and benefits discussed with the patient, including but not limited, risk of infection and bleeding, and allergic reaction to the medication and incomplete pain relief. Patient agreed and signed consent. Patient was taken to the room and placed in a prone position. Chlorhexidine was used to cleanse the skin. Under sterile conditions patient skin was anesthetized 1% lidocaine. S ubcutaneous tissues were also anesthetized with a total 5 mL of 1% lidocaine. After that, a 22-gauge spinal needle was advanced through the anesthetized location under fluoroscopic guidance. Needle was advanced into the inferior portion of the sacroiliac joint. IV contrast was used to confirm spread within the joint. After adequate spread was achieved, 2.5 ML's of 0.5% ropivacaine with 40 mg of depomedrol was injected into the joint (steroid split between both sides). Patient tolerated the procedure well. Sent to the recovery room in stable condition. Patient will follow up as directed.
--- NOTE | 2021-07-01 09:08 | P.PCN ---
Date of Procedure: 07/01/21 Description of Procedure: Preoperative Diagnosis: myofascial pain syndrome of lumbar paraspinal muscles Postoperative diagnosis: Same Anesthesia: Local Surgeon: Teodoro Hernandez MD Indications for procedure: This is a 86-year-old patient with myofascial pain and palpable trigger points in lumbar paraspinal muscles. The patient consents for an injection after an explanation of risks including but not limited to bleeding and infection, benefits, and alternatives and the patient has signed a consent form indicating understanding of all of them. Description of procedure: After informed consent was obtained the patient's painful area was sterilely prepped in the usual fashion with ChloraPrep. bilateral lumbar trigger points were identified via palpation of the paraspinal muscles and marked sterilely. Each trigger point was injected with a 25-gauge one and a half inch needle. At that point a solution consisting of 9ml of 0.5% ropivacaine was distributed evenly over the trigger points. The patient's vital signs were stable afterwards and the procedure was tolerated well. Patient was discharged home with follow-up instructions.
[2021-07-01] MEDS ORDERED: IV FLUID CONTINUATION 1,000 ML IV ONE ×3 (09:13)
[2021-07-01 09:16] VITALS: RESP 16
[2021-07-01 09:28] VITALS: BP 180/79; PULSE 70
--- NOTE | 2021-07-01 09:58 | FL ---
Fluoroscopy HISTORY: Pain 6 seconds fluoroscopy time supplied to the referring clinician. 2 intraoperative C-arm images docume nt the procedure. See dictated report from anesthesia.
== END 2021-07-01 10:02 | disposition home or self-care (01) ==
LOC: ORPAIN 08:27
PROVIDERS: ATTEND Hospitalist
DX: M46.1 Sacroiliitis, not elsewhere classified (principal); M79.18 Myalgia, other site
CPT/HCPCS: 20553; J2250; J1030; J3010; Q9966; J2795; G0260; 99152

== ENCOUNTER → 2021-08-25 | Outpatient (CLI) | payer MEDICARE, OTHER ==
[2021-08-25 10:23] VITALS: BP 198/89; PULSE 67; RESP 18; TEMP 98
--- NOTE | 2021-08-25 14:24 | P.PAINPG ---
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 She states she experienced 30% pain relief x 1 day s/p procedure. Pain level is currently at 8/10 in intensity, localized to the lower back, R > L, achy with accompanying stiffiness. No radiation of pain. Pain is provoked by walking/standing for periods of 10 min or more. Pain is alleviated with medications (Motrin, Tylenol), icy hot topicals, repositioning and rest. Interventional pain procedures completed include BL SI joint, TPI of Lumbar spine Patient is currently on Tylenol, Motrin OTC Patient denies any side effects of the medication(s), denies excessive drowsiness or sleepiness, denies suicidal ideation and reports that the current pain medication is helping to control the pain and improve activities of daily living. Patient denies any motor or sensory deficits. Patient denies any fever or night sweats, denies any change in the bowel movements or urination. Physical Examination: -Constitutional: Cooperative. Not in acute distress . - Neurologic: Cranial nerve II to XII intact. No focal neurological deficits. - Psychatric: Alert & oriented x 3. Matching mood & appropriate affect. Judgment and insight intact. - Musculoskeletal: Cervical spine: Muscle bulk/ tone/ strength in the bilateral upper extremities normal Vertebral body tenderness to palpation over Spurling test positive Distraction test positive Facet loading test positive Thoracic spine Muscle bulk / tone/ strength in the bilateral paraspinal muscles normal Vertebral body tender to palpation over Facet loading test positive Lumbar spine: Motor bulk/ tone/ strength lower extremities , thigh and legs : 5/5 Deep tendon reflexes : Normal Knee Jerk. Normal Ankle Jerk . Vertebral body tenderness to palpation over Lumbar Facet Loading Test positive Straight Leg Raise: positive at 30 degrees right side/ left side Gaenslen's Test positive Sacral spine : Severe tenderness over the Sacroiliac joint: right side / left side Range of motion: Flexion of the lumbar spine <60 degrees Range of motion: Extension of the lumbar spine <20 degrees Gaenslen's Test positive on R side Rizwan's Test positive Leonard test: positive right side / left side +R Thigh Thrust Test R Sacral Thrust Test Assessment and plan: Chronic low back pain secondary to lumbar degenerative disc disease , lumbar spondylosis with facet arthropathy without myelopathy Recommendation of R SI joint injection. May need a series, up to every 3 mo, for optimal pain relief. Risks, benefits of procedure discussed and pt verbalized understanding. Denies anticoagulant use or medical history of diabetes. All patient questions answered MAPS reviewed and it was appropriate. Prescription refill for Lidoderm 5% apply to AA QAM, remove at bedtime #30 w 1 refill I have spent less than 30 minutes on patient care today. Dr Silva was available by phone for the evaluation of this patient. The time was used to review the medical records including relevant urine studies and Prescription history (MAPs), review of the available imaging, evaluation and examination of the patient, coordination of care with the medical staff and if applicable referring physicians, as well as creation of the medical record PQRS Narrative: Smoking Status Never smoker Hx Alcohol Use (MH) No Home Medications: Ambulatory Orders Latanoprost [Xalatan 0.005%] 1 drop BOTH EYES HS 07/18/17 Losartan Potassium 100 mg PO QAM 07/18/17 Omeprazole 20 mg PO DAILY PRN 07/18/17 Renavit Eye Vitamin 1 tab PO BID 07/18/17 Acetaminophen [Tylenol] 325 - 650 mg PO Q6H PRN 06/30/21 Ibuprofen 200 - 400 mg PO Q6H PRN 06/30/21 Loratadine [Claritin] 10 mg PO DAILY 06/30/21 Metoprolol Succinate [Toprol XL] 25 mg PO QAM 06/30/21 Controlled Substance Measures - Controlled Substance Measures Is patient prescribed a controlled substance at discharge?: No
== END ==
LOC: PNWHC3 09:52
PROVIDERS: ATTEND Specialist
DX: M51.36 Other intervertebral disc degeneration, lumbar region (principal); M47.816 Spondylosis without myelopathy or radiculopathy, lumbar region; G89.29 Other chronic pain; Z88.0 Allergy status to penicillin; Z88.1 Allergy status to other antibiotic agents; Z88.2 Allergy status to sulfonamides; Z91.013 Allergy to seafood
CPT/HCPCS: 99211

== ENCOUNTER → 2021-09-16 | Outpatient (CLI) | payer MEDICARE, OTHER ==
--- NOTE | 2021-09-17 08:17 | MM ---
Reason for Exam: Screening (asymptomatic). Last screening mammogram was performed 12 month(s) ago. Patient History: Menarche at age 15. First Full-Term at age 24. Left ovary removed at age 37. Right ovary removed at age 37. Hysterectomy at age 37. Postmenopausal. Other cancer, age 75. Patient used Estrogen for 3 years. Risk Values: Bela 5 year model risk: 1.3%. NCI Lifetime model risk: 1.4%. Prior Study Comparison: 04/29/2018 Bilateral Screening Mammogram, [facility]. 08/17/2019 Bilateral Screening Mammogram, [facility]. 09/13/2020 Bilateral Screening Mammogram, [facility]. Tissue Density: There are scattered fibroglandular densities. Findings: Analyzed By CAD. There is no suspicious group of microcalcifications or new suspicious mass in either breast. No significant change from prior exams. Overall Assessment: Negative, BI-RAD 1 Management: Screening Mammogram of both breasts in 1 year. A clinical breast exam by your physician is recommended on an annual basis and results should be correlated with mammographic findings. Electronically signed and approved by: Edenilson Celis D.O.
== END | disposition home or self-care (01) ==
LOC: RADMAMWWP 10:41
PROVIDERS: ATTEND Family Medicine
DX: Z12.31 Encounter for screening mammogram for malignant neoplasm of breast (principal); Z78.0 Asymptomatic menopausal state
CPT/HCPCS: 77063; 77067

== ENCOUNTER → 2021-10-23 | Outpatient (CLI) | payer MEDICARE, OTHER ==
[2021-10-23 09:34] VITALS: BP 155/85; PULSE 63; RESP 18; TEMP 98.5
--- NOTE | 2021-10-23 13:33 | P.PAINPG ---
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 Pt states she experienced 0 % pain relief x 3 wks s/p procedure. Pain level is currently at 8/10 in intensity, constant, stabbing in character w shooting towards the BLEs, R >L. Pain is provoked by standing/ walking. Pain is alleviated with ice, home stretching regimen, repositioning, lidoderm patches, medications (Neurontin) and rest. Interventional pain procedures completed include BL SI injection Patient is currently on Neurontin Patient denies any side effects of the medication(s), denies excessive drowsiness or sleepiness, denies suicidal ideation and reports that the current pain medication is helping to control the pain and improve activities of daily living. Patient denies any motor or sensory deficits. Patient denies any fever or night sweats, denies any change in the bowel movements or urination. Physical Examination: -Constitutional: Cooperative. Not in acute distress . - Neurologic: Cranial nerve II to XII intact. No focal neurological deficits. - Psychatric: Alert & oriented x 3. Matching mood & appropriate affect. Judgment and insight intact. - Musculoskeletal: Cervical spine: Muscle bulk/ tone/ strength in the bilateral upper extremities normal Vertebral body tenderness to palpation over Spurling test positive Distraction test positive Facet loading test positive Thoracic spine Muscle bulk / tone/ strength in the bilateral paraspinal muscles normal Vertebral body tender to palpation over Facet loading test positive Lumbar spine: Motor bulk/ tone/ strength lower extremities , thigh and legs : 5/5 Deep tendon reflexes : Normal Knee Jerk. Normal Ankle Jerk . Vertebral body tenderness to palpation over Lumbar Facet Loading Test positive R lumbar paraspinal TTP L2- S1 Straight Leg Raise: positive at 30 degrees right side/ left side Gaenslen's Test positive Sacral spine : Severe tenderness over the Sacroiliac joint: right side / left side Range of motion: Flexion of the lumbar spine <60 degrees Range of motion: Extension of the lumbar spine <20 degrees Gaenslen's Test positive Rizwan's Test positive Leonard test: positive right side / left side Thigh Thrust Test Sacral Thrust Test Assessment and plan: Chronic low back pain secondary to lumbar degenerative disc disease , lumbar spondylosis with facet arthropathy without myelopathy Recommendation of TPIs of R L2-S1. May need a series of injections, up to 4 within a 12 mo period, for optimal pain relief. Risks, benefits of procedure discussed and pt verbalized understanding. Denies anticoagulant use or medical history of diabetes. All patient questions answered MAPS reviewed and it was appropriate. I have spent less than 30 minutes on patient care today. Dr Silva was available by phone for the evaluation of this patient. The time was used to review the medical records including relevant urine studies and Prescription history (MAPs), review of the available imaging, evaluation and examination of the patient, coordination of care with the medical staff and if applicable referring physicians, as well as creation of the medical record PQRS Narrative: Smoking Status Never smoker Hx Alcohol Use (MH) No Home Medications: Ambulatory Orders Latanoprost [Xalatan 0.005%] 1 drop BOTH EYES HS 07/18/17 Losartan Potassium 100 mg PO QAM 07/18/17 Omeprazole 20 mg PO DAILY PRN 07/18/17 Renavit Eye Vitamin 1 tab PO BID 07/18/17 Acetaminophen [Tylenol] 325 - 650 mg PO Q6H PRN 06/30/21 Ibuprofen 200 - 400 mg PO Q6H PRN 06/30/21 Loratadine [Claritin] 10 mg PO DAILY 06/30/21 Metoprolol Succinate [Toprol XL] 25 mg PO QAM 06/30/21 Lidocaine 5% Patch [Lidoderm] 1 each TP DAILY PRN 09/29/21 predniSONE See Taper PO DAILY 09/29/21 Controlled Substance Measures - Controlled Substance Measures Is patient prescribed a controlled substance at discharge?: No
== END ==
LOC: PNWHC3 08:16
PROVIDERS: ATTEND Specialist
DX: M47.816 Spondylosis without myelopathy or radiculopathy, lumbar region (principal); M51.36 Other intervertebral disc degeneration, lumbar region; G89.29 Other chronic pain; Z88.0 Allergy status to penicillin; Z88.1 Allergy status to other antibiotic agents; Z88.2 Allergy status to sulfonamides; Z91.013 Allergy to seafood
CPT/HCPCS: 99211

== ENCOUNTER 2021-12-02 09:34 | Day surgery (SDC) | payer MEDICARE, OTHER ==
[~2021-12-02 09:34] MED LIST changes: +LIDOCAINE 1% (10MG/ML) FOR IV START INTRADERMA PRN
[2021-12-02 10:46] VITALS: TEMP 97.3
[2021-12-02] MEDS ORDERED: ROPIVACAINE 5 MG/ML 20 ML AMPULE ONE (10:56)
[2021-12-02] MEDS ORDERED: TRIAMCINOLONE ACETONIDE 40 MG/ML 1 ML VIAL ONE (10:56)
[2021-12-02] MEDS ORDERED: MIDAZOLAM 2 MG/2 ML VIAL ONE (10:56)
[2021-12-02] MEDS ORDERED: LACTATED RINGERS 1,000 ML IV SCH (11:00)
[2021-12-02] MEDS ORDERED: IV FLUID CONTINUATION 1,000 ML IV ONE (11:09)
--- NOTE | 2021-12-02 11:10 | P.PCN ---
Date of Procedure: 12/02/21 Description of Procedure: Pre and postop diagnosis: Myofascial pain syndrome Procedure: Right side lumbar Trigger point injections X 6 Muscle group right side paraspinal muscle, and right side iliocostalis lumborum Surgeon: Carine Apple Anesthesia: Versed 1 mg sedation Supervision start time: 1057 Sedation supervision ended time: 1104 Complications: None Estimated blood loss: None Specimen removed: None Procedure indications: Patient had a history of myofascial pain syndrome. Patient tried conservative therapy. Came here for intervention procedure for better pain relief. Procedure description: Patient was seen and identified in the holding area risk benefits competitions alternative discussed with the patient. Patient agreed to proceed for the procedure signed the consent. Patient taken to the procedure area. Timeout was completed. A total number of 6- trigger point area was marked with a sterile marker. After ChloraPrep used to clean the area. Critical pause was taken. Using 25-gauge 1-1/2 [address] needle b[address] half way. Needle entered in each market site 2 mL of block solution injected at each level. The block solution containing 12ml of 0.5% preservative-free ropivacaine with Kenlog 40 MG. Needle removed intact skin cleaned and Band-Aid applied. Patient tolerated the procedure well. Disposition: Patient discharge home after meeting the discharge criteria from the recovery. Patient scheduled to follow up with the pain clinic in 4 weeks for follow-up visit.
[2021-12-02 11:13] VITALS: RESP 18
[2021-12-02 11:28] VITALS: BP 149/70; PULSE 63
== END 2021-12-02 11:40 | disposition home or self-care (01) ==
LOC: ORPAIN 09:34
DX: M47.817 Spondylosis without myelopathy or radiculopathy, lumbosacral region (principal); M79.18 Myalgia, other site
CPT/HCPCS: 20553; J2250; J3301; J2795

== ENCOUNTER 2021-12-20 14:22 | Emergency (ER) | payer MEDICARE, OTHER ==
[2021-12-20] MEDS ORDERED: SODIUM CHLORIDE 0.9% 1,000 ML IV STA (16:18)
[2021-12-20] MEDS ORDERED: MORPHINE SULFATE 4 MG/ML SYRINGE IV STA (16:18)
[2021-12-20 16:56] LABS: Basophils # (A) 0.1 k/uL (0-0.2); Basophils % (A) 1 %; Eosinophils # (A) 0.3 k/uL (0-0.7); Eosinophils % (A) 4 %; HGB 14.1 gm/dL (11.4-16.0); Lymphocytes # (A) 1.5 k/uL (1.0-4.8); Lymphocytes % (A) 21 %; MCH 31.4 pg (25.0-35.0); MCHC 33.5 g/dL (31.0-37.0); Mean Platelet Volume 7.6; Monocytes # (A) 0.3 k/uL (0-1.0); Monocytes % (A) 5 %; Neutrophils # (A) 4.8 k/uL (1.3-7.7); Neutrophils % (A) 67 %; Platelet Count 246 k/uL (150-450); RBC 4.47 m/uL (3.80-5.40); RDW 13.3 % (11.5-15.5); WBC 7.1 k/uL (3.8-10.6)
[2021-12-20 16:59] LABS: Appearance,Urine Clear (Clear); Bilirubin,Urine Negative (Negative); Blood,Urine Negative (Negative); Color,Urine Yellow; Glucose,Urine (UA) Negative (Negative); Ketones,Urine Negative (Negative); Leukocyte Esterase,Urine Small (Negative); Mucus,Urine Rare /hpf; Nitrite,Urine Negative (Negative); Protein,Urine Trace (Negative); RBC,Urine 1 /hpf (0-5); Specific Gravity,Urine 1.024 (1.001-1.035); Squamous Epithelial Cell,Urine 3 /hpf (0-4); Urobilinogen,Urine <2.0 mg/dL (<2.0); WBC,Urine 7 /hpf (0-5)
[2021-12-20 17:06] LABS: INR 0.9 (<1.2); Partial Thromboplastin Time 24.1 sec (22.0-30.0); Potassium 4.3 mmol/L (3.5-5.1); Prothrombin Time 9.9 sec (9.0-12.0); Total Bilirubin 0.6 mg/dL (0.2-1.3); Total Protein 6.6 g/dL (6.3-8.2)
--- NOTE | 2021-12-20 17:18 | XR ---
EXAMINATION TYPE: XR KUB DATE OF EXAM: 12/20/2021 COMPARISON: NONE HISTORY: Flank pain TECHNIQUE: 2 views FINDINGS: There is no sign of intestinal obstruction or pneumoperitoneum. Fecal pattern is normal. No evidence of a mass. There is slight lumbar levoscoliosis. There is some spurring in the lumbar spine . No compression fracture. Sacroiliac joints are intact. There is acetabular spurring. No calcification seen over the kidneys. IMPRESSION: Nonacute abdomen.
--- NOTE | 2021-12-20 18:11 | US ---
EXAMINATION TYPE: US kidneys/renal and bladder DATE OF EXAM: 12/20/2021 COMPARISON: CT 2019 CLINICAL HISTORY: eval for hydro/stone. bilateral flank pain/back pa. EXAM MEASUREMENTS: Right Kidney: 13.2 x 5.5 x 6.5 cm Left Kidney: 12.4 x 5.7 x 5.7 cm Difficult and limited study due to patient body habitus Right Kidney: no hydronephrosis or masses seen Left Kidney: 2 small echogenic foci seen measuring 0.4mm, one superior pole and one inferior pole Bladder: wnl Bilateral Jets seen: right jet seen, left jet not seen IMPRESSION: Nonobstructing left renal calculus. No evidence of renal mass. No hydronephrosis.
[2021-12-20 18:13] VITALS: RESP 18; TEMP 98.2
--- NOTE | 2021-12-20 19:33 | CT ---
EXAMINATION TYPE: CT angio thor/abd pel aorta DATE OF EXAM: 12/20/2021 COMPARISON: None HISTORY: chest and back pain CT DLP: 2682.8 mGycm Automated exposure control for dose reduction was used. CONTRAST: Performed with IV Contrast, patient injected with 80 mL of Isovue 370. Images obtained from the thoracic inlet to the floor the pelvis without and subsequently with the IV contrast. There are Three-D postprocessed images. There is some interstitial infiltrate and subsegmental atelectasis at the lung bases. No pleural effu dominique or pneumothorax. No mediastinal adenopathy. There are no hilar masses. Heart size is fairly norm al. Liver spleen pancreas and stomach and gallbladder appear intact. The bile ducts are not dilated. Ther e is no adrenal mass. Kidneys of normal size. No hydronephrosis. The ureters are not dilated. No retr operitoneal adenopathy. The bladder distends smoothly. No inguinal hernia. No free fluid in the pelvi s. No pelvic mass. There are numerous sigmoid diverticula. No diverticulitis. Appendix not clearly seen. No sign of thickened appendix. There is contrast opacification of the thoracic abdominal aorta. No aneurysm or dissection. No fillin g defect in the pulmonary arteries. There is arterial flow in the celiac artery and superior mesenter ic artery. There is arterial flow in the renal and iliac and femoral arteries. There is arterial flow in the inferior mesenteric artery. No aneurysm or dissection. No hemodynamic stenosis. IMPRESSION: Negative CT angiogram of the chest abdomen pelvis. No evidence of arterial aneurysm or dissection. No evidence of pulmonary embolism. Colonic diverticulosis without diverticulitis. Interstitial infiltrates and atelectasis at the lung bases.
[2021-12-20] MEDS ORDERED: NITROFURANTOIN MONOHYD/M-CRYST 100 MG CAP PO STA (19:44)
[2021-12-20] MEDS ORDERED: ACET/COD 300 MG/30 MG STARTER PACK 6 TAB BTL PO STA (19:45)
--- NOTE | 2021-12-20 19:46 | ED ---
General Adult HPI - General Chief complaint: Abdominal Pain Stated complaint: Possible kidney stone Time Seen by Provider: 12/20/21 15:59 Source: patient, RN notes reviewed, old records reviewed Mode of arrival: ambulatory Limitations: no limitations - History of Present Illness Initial comments: Patient is an 86-year-old female who presents emergency Department concerned that she may have kidney stones. Is presenting with bilateral back pain. State s it has been ongoing for 1-2 days. Somewhat worse with movement. Denies any dysuria or hematuria. Denies any nausea or vomiting. Denies any diarrhea. Does have a history of chronic back pain, hand pain which is she sees a pain doctor. Denies any saddle anesthesia. Denies any urinary retention, bowel retention. Has no other acute complaints at this time. She is concerned that she may have kidney stones, but does admit that normally she is nauseous when these are causing issues. Describes the pain is achy, sharp. Presents for further evaluation of this time. - Related Data Home Medications Medication Instructions Recorded Confirmed Latanoprost [Xalatan 0.005%] 1 drop BOTH EYES HS 07/18/17 12/01/21 Losartan Potassium 100 mg PO QAM 07/18/17 12/01/21 Omeprazole 20 mg PO DAILY PRN 07/18/17 12/01/21 Renavit Eye Vitamin 1 tab PO BID 07/18/17 12/01/21 Acetaminophen [Tylenol] 325 - 650 mg PO Q6H PRN 06/30/21 12/01/21 Ibuprofen 200 - 400 mg PO Q6H PRN 06/30/21 12/01/21 Loratadine [Claritin] 10 mg PO DAILY 06/30/21 12/01/21 Metoprolol Succinate [Toprol XL] 25 mg PO QAM 06/30/21 12/01/21 Lidocaine 5% Patch [Lidoderm] 1 each TP DAILY PRN 09/29/21 12/01/21 Gabapentin [Neurontin] 100 mg PO BID 12/01/21 12/01/21 Previous Rx's Medication Instructions Recorded Nitrofurantoin Monohyd/M-Cryst 100 mg PO Q12HR 3 Days #6 cap 12/20/21 [Macrobid] Allergies Allergy/AdvReac Type Severity Reaction Status Date / Time clindamycin Allergy Severe Rash/Hives Verified 12/20/21 14:41 Sulfa (Sulfonamide Allergy Severe Swelling Verified 12/20/21 14:41 Antibiotics) Penicillins Allergy Swelling Verified 12/20/21 14:41 shellfish derived [Lobster] Allergy Unknown Verified 12/20/21 14:41 tuna oil Allergy Unknown Verified 12/20/21 14:41 Review of Systems ROS Statement: Those systems with pertinent positive or pertinent negative responses have been documented in the HPI. Review of Systems: CONST: Denies fever EYES: Denies blurry vision ENT: Denies nasal congestion C/V: Denies Chest pain RESP: Denies shortness of breath GI: Denies abdominal pain : Denies dysuria SKIN: Denies rash. MSK: Endorses back pain NEURO: Denies headache ROS Other: All systems not noted in ROS Statement are negative. 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 BILATERAL CATARACT. LASER PROCEDURE LEFT GLAUCOMA Past Anesthesia/Blood Transfusion Reactions: No Reported Reaction Past Psychological History: No Psychological Hx Reported Smoking Status: Never smoker Past Alcohol Use History: None Reported Past Drug Use History: None Reported General Exam - General Exam Comments Initial Comments: General: Appears in no acute distress. HEAD: Normal with no signs of head trauma. EYES: PERRLA, EOMI, conjunctiva normal, no discharge. ENT: Hearing grossly intact, normal oropharynx. RESPIRATORY: Clear breath sounds bilaterally. No wheezes, rales, or rhonchi. C/V: Regular rate and rhythm. S1 and S2 auscultated, no edema, peripheral pulses 2+ and intact throughout ABD: Abd is soft, nontender, nondistended EXT: Patient has bilateral paraspinal muscle tenderness palpation in the mid lumbar spine. No midline tenderness. No radiation. Worse with movement. Pelvis stable. No midline cervical, thoracic, lumbar spine tenderness palpation. SKIN: No rashes or lesions observed on exposed skin. NEURO: Alert and oriented 4. Limitations: no limitations Course Vital Signs 12/20/21 12/20/21 12/20/21 14:37 18:13 20:31 Temperature 98.1 F 98.2 F 98.2 F Pulse Rate 77 70 68 Respiratory 20 18 18 Rate Blood Pressure 176/79 191/92 179/84 O2 Sat by Pulse 99 97 96 Oximetry Medical Decision Making - Medical Decision Making Based on the patient's presentation and physical exam, I'm concerned for possible kidney stone but pain could be secondary to muscle skeletal pain. We will obtain abdominal laboratory studies, abdominal x-ray, ultrasound. She'll be given IV fluids as well as pain medications. She was in agreement this plan. Vital signs within acceptable limits. KUB is interpreted by myself reveals no obvious bowel obstruction, no bony traumatic process, no constipation. Nonacute abdomen. No obvious stone seen. Ultrasound of the bladder, kidneys reveals nonobstructing left renal calculi but otherwise no acute findings. Laboratory studies were remarkable for a possible early urinary tract infection with a small amount of leukocyte esterase and WBCs present. Reevaluation come patient is still having pain. She is hypertensive as well. Discussed obtain CT imaging which we agreed with. He was a delay in obtaining CT imaging of the abdomen due to higher acuity patients, however when CT was eventually obtained as interpreted by myself that showed no evidence of acute aortic injury, no acute intra-abdominal process. No evidence of acute infection. Negative for dissection or aneurysm. No evidence stones. On reevaluation, I discussed results of the patient. I believe her pain is likely secondary to muscle skeletal causes. She was in agreement this plan. She'll be discharged home at this time with strict follow-up precautions. Recommended follow-up with her pain doctor. She'll be given Tylenol 3's for home. She was in agreement with this plan. Patient had no red flag symptoms to suggest cauda equina syndrome. I instructed the patient to follow up with their PCP in the next 1-3 days. I explained that the patient should return to the emergency department if they experience any worsening symptoms. Strict return precautions were discussed with the patient. The patient expressed understanding of these instructions. I answered all questions that the patient had. The patient was discharged home in good condition with their prescriptions and follow up information. - Lab Data Result diagrams: 12/20/21 16:49 12/20/21 16:49 Lab Results 12/20/21 12/20/21 12/20/21 Range/Units 16:29 16:49 16:49 WBC 7.1 (3.8-10.6) k/uL RBC 4.47 (3.80-5.40) m/uL Hgb 14.1 (11.4-16.0) gm/dL Hct 42.0 (34.0-46.0) % MCV 94.0 (80.0-100.0) fL MCH 31.4 (25.0-35.0) pg MCHC 33.5 (31.0-37.0) g/dL RDW 13.3 (11.5-15.5) % Plt Count 246 (150-450) k/uL MPV 7.6 Neutrophils % 67 % Lymphocytes % 21 % Monocytes % 5 % Eosinophils % 4 % Basophils % 1 % Neutrophils # 4.8 (1.3-7.7) k/uL Lymphocytes # 1.5 (1.0-4.8) k/uL Monocytes # 0.3 (0-1.0) k/uL Eosinophils # 0.3 (0-0.7) k/uL Basophils # 0.1 (0-0.2) k/uL PT 9.9 (9.0-12.0) sec INR 0.9 (<1.2) APTT 24.1 (22.0-30.0) sec Sodium (137-145) mmol/L Potassium (3.5-5.1) mmol/L Chloride (98-107) mmol/L Carbon Dioxide (22-30) mmol/L Anion Gap mmol/L BUN (7-17) mg/dL Creatinine (0.52-1.04) mg/dL Est GFR (CKD-EPI)AfAm (>60 ml/min/1.73 sqM) Est GFR (CKD-EPI)NonAf (>60 ml/min/1.73 sqM) Glucose (74-99) mg/dL Calcium (8.4-10.2) mg/dL Total Bilirubin (0.2-1.3) mg/dL AST (14-36) U/L ALT (4-34) U/L Alkaline Phosphatase (38-126) U/L Total Protein (6.3-8.2) g/dL Albumin (3.5-5.0) g/dL Amylase (30-110) U/L Lipase (23-300) U/L Urine Color Yellow Urine Appearance Clear (Clear) Urine pH 6.0 (5.0-8.0) Ur Specific Winters 1.024 (1.001-1.035) Urine Protein Trace H (Negative) Urine Glucose (UA) Negative (Negative) Urine Ketones Negative (Negative) Urine Blood Negative (Negative) Urine Nitrite Negative (Negative) Urine Bilirubin Negative (Negative) Urine Urobilinogen <2.0 (<2.0) mg/dL Ur Leukocyte Esterase Small H (Negative) Urine RBC 1 (0-5) /hpf Urine WBC 7 H (0-5) /hpf Ur Squamous Epith Cells 3 (0-4) /hpf Urine Mucus Rare H (None) /hpf 12/20/21 Range/Units 16:49 WBC (3.8-10.6) k/uL RBC (3.80-5.40) m/uL Hgb (11.4-16.0) gm/dL Hct (34.0-46.0) % MCV (80.0-100.0) fL MCH (25.0-35.0) pg MCHC (31.0-37.0) g/dL RDW (11.5-15.5) % Plt Count (150-450) k/uL MPV Neutrophils % % Lymphocytes % % Monocytes % % Eosinophils % % Basophils % % Neutrophils # (1.3-7.7) k/uL Lymphocytes # (1.0-4.8) k/uL Monocytes # (0-1.0) k/uL Eosinophils # (0-0.7) k/uL Basophils # (0-0.2) k/uL PT (9.0-12.0) sec INR (<1.2) APTT (22.0-30.0) sec Sodium 140 (137-145) mmol/L Potassium 4.3 (3.5-5.1) mmol/L Chloride 105 (98-107) mmol/L Carbon Dioxide 28 (22-30) mmol/L Anion Gap 7 mmol/L BUN 22 H (7-17) mg/dL Creatinine 0.88 (0.52-1.04) mg/dL Est GFR (CKD-EPI)AfAm 70 (>60 ml/min/1.73 sqM) Est GFR (CKD-EPI)NonAf 61 (>60 ml/min/1.73 sqM) Glucose 105 H (74-99) mg/dL Calcium 9.0 (8.4-10.2) mg/dL Total Bilirubin 0.6 (0.2-1.3) mg/dL AST 28 (14-36) U/L ALT 25 (4-34) U/L Alkaline Phosphatase 44 (38-126) U/L Total Protein 6.6 (6.3-8.2) g/dL Albumin 4.0 (3.5-5.0) g/dL Amylase 63 (30-110) U/L Lipase 165 (23-300) U/L Urine Color Urine Appearance (Clear) Urine pH (5.0-8.0) Ur Specific Winters (1.001-1.035) Urine Protein (Negative) Urine Glucose (UA) (Negative) Urine Ketones (Negative) Urine Blood (Negative) Urine Nitrite (Negative) Urine Bilirubin (Negative) Urine Urobilinogen (<2.0) mg/dL Ur Leukocyte Esterase (Negative) Urine RBC (0-5) /hpf Urine WBC (0-5) /hpf Ur Squamous Epith Cells (0-4) /hpf Urine Mucus (None) /hpf Disposition Clinical Impression: UTI (urinary tract infection), Back pain Disposition: HOME SELF-CARE Condition: Good Prescriptions: Nitrofurantoin Monohyd/M-Cryst [Macrobid] 100 mg PO Q12HR 3 Days #6 cap Is patient prescribed a controlled substance at d/c from ED?: No Referrals: Christel Wakefield MD [Primary Care Provider] - 1-2 days Time of Disposition: 19:30
[2021-12-20 20:33] VITALS: BP 179/84; PULSE 68
== END 2021-12-20 20:33 | disposition home or self-care (01) ==
LOC: EC 14:22
DX: N20.0 Calculus of kidney (principal); N39.0 Urinary tract infection, site not specified; I10 Essential (primary) hypertension; Z79.891 Long term (current) use of opiate analgesic; Z91.013 Allergy to seafood; Z88.1 Allergy status to other antibiotic agents; Z88.2 Allergy status to sulfonamides; Z88.0 Allergy status to penicillin; Z79.899 Other long term (current) drug therapy
CPT/HCPCS: 96361; 96374; 99284; 36415; 80053; 82150; 83690; 85025; 85610; 85730; 81001; 74018; 76770; 71275; 74174; J2270; Q9967; 99285

== ENCOUNTER → 2021-12-25 | Outpatient (CLI) | payer MEDICARE, OTHER ==
[2021-12-25 11:23] VITALS: BP 149/89; PULSE 96; RESP 18; TEMP 98.1
--- NOTE | 2021-12-25 14:23 | P.PAINPG ---
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 90% x 2 wks s/p procedure. Pain level is currently at 8 /10 in intensity, constant, R lower lumbar spine, sharp in character w shooting occasionally towards the LLE. Pain is provoked by standing/ walking for periods of 10 min or more. Pain is alleviated with ice, topicals, sitting, use of a wheelchair for ambulation, repositioning and rest. Interventional pain procedures completed include BL SI x1, R SI x1, R Lumbar TPIs x1 Patient is currently on Lidoderm Patient denies any side effects of the medication(s), denies excessive drowsiness or sleepiness, denies suicidal ideation and reports that the current pain medication is helping to control the pain and improve activities of daily living. Patient denies any motor or sensory deficits. Patient denies any fever or night sweats, denies any change in the bowel movements or urination. Physical Examination: -Constitutional: Cooperative. Not in acute distress . - Neurologic: Cranial nerve II to XII intact. No focal neurological deficits. - Psychatric: Alert & oriented x 3. Matching mood & appropriate affect. Judgment and insight intact. - Musculoskeletal: Cervical spine: Muscle bulk/ tone/ strength in the bilateral upper extremities normal Vertebral body tenderness to palpation over Spurling test positive Distraction test positive Facet loading test positive Thoracic spine Muscle bulk / tone/ strength in the bilateral paraspinal muscles normal Vertebral body tender to palpation over Facet loading test positive Lumbar spine: Motor bulk/ tone/ strength lower extremities , thigh and legs : 5/5 Deep tendon reflexes : Normal Knee Jerk. Normal Ankle Jerk . Vertebral body tenderness to palpation over Lumbar Facet Loading Test positive Straight Leg Raise: positive at 30 degrees right side/ left side Gaenslen's Test positive Sacral spine : +R iliosacral TTP Severe tenderness over the Sacroiliac joint: right side / left side Range of motion: Flexion of the lumbar spine <60 degrees Range of motion: Extension of the lumbar spine <20 degrees Gaenslen's Test positive Leonard test: positive right side / left side Thigh Thrust Test Sacral Thrust Test Assessment and plan: Chronic low back pain secondary to lumbar degenerative disc disease, spondylosis with facet arthropathy without myelopathy Recommendation of repeat R TPIs L2-S2. May need a series, up to 4 within a 12 mo period, for optimal pain relief. Risks, benefits of procedure discussed and pt verbalized understanding. Denies anticoagulant use or medical history of diabetes. All patient questions answered I have spent less than 30 minutes on patient care today. Dr Silva was available by phone for the evaluation of this patient. The time was used to review the medical records including relevant urine studies and Prescription history (MAPs), review of the available imaging, evaluation and examination of the patient, coordination of care with the medical staff and if applicable referring physicians, as well as creation of the medical record PQRS Narrative: Smoking Status Never smoker Hx Alcohol Use (MH) No Home Medications: Ambulatory Orders Latanoprost [Xalatan 0.005%] 1 drop BOTH EYES HS 07/18/17 Losartan Potassium 100 mg PO QAM 07/18/17 Omeprazole 20 mg PO DAILY PRN 07/18/17 Renavit Eye Vitamin 1 tab PO BID 07/18/17 Acetaminophen [Tylenol] 325 - 650 mg PO Q6H PRN 06/30/21 Ibuprofen 200 - 400 mg PO Q6H PRN 06/30/21 Loratadine [Claritin] 10 mg PO DAILY 06/30/21 Metoprolol Succinate [Toprol XL] 25 mg PO QAM 06/30/21 Lidocaine 5% Patch [Lidoderm] 1 each TP DAILY PRN 09/29/21 Gabapentin [Neurontin] 100 mg PO BID 12/01/21 Nitrofurantoin Monohyd/M-Cryst [Macrobid] 100 mg PO Q12HR 3 Days #6 cap 12/20/21 Controlled Substance Measures - Controlled Substance Measures Is patient prescribed a controlled substance at discharge?: No
== END | disposition home or self-care (01) ==
LOC: PNWHC3 09:18
PROVIDERS: ATTEND Specialist
DX: M47.896 Other spondylosis, lumbar region (principal); M51.36 Other intervertebral disc degeneration, lumbar region
CPT/HCPCS: 99211

== ENCOUNTER 2022-02-03 09:01 | Day surgery (SDC) | payer MEDICARE, OTHER ==
[2022-02-03 10:36] VITALS: RESP 16; TEMP 97
[2022-02-03] MEDS ORDERED: ROPIVACAINE 5 MG/ML 20 ML AMPULE ONE (10:44)
[2022-02-03] MEDS ORDERED: methylPREDNISolone ACETATE 40 MG/ML 1 ML VIAL ONE (10:44)
--- NOTE | 2022-02-03 11:01 | P.PCN ---
Date of Procedure: 02/03/22 Procedure(s) Performed: Procedure= trigger point injections right-sided lumbosacral area , (total of 3 trigger point injected on the right side lumbosacral area ) Preoperative diagnosis= 1-right sacroiliitis 2-myofascial pain syndrome lumbar-sacral area. Postoperative diagnosis=Same as preop Diagnosis . Complication = none Condition= stable Anesthesia= none Indication for the procedure= patient complaining of low back pain , examination was positive for multiple trigger point identified in the right side lumbar sacral area and she needed to have trigger point injections, procedure risk and benefit and alternatives discussed with the patient she agreed with the preceding patient taken to the procedure room placed in sitting position, and under sterile technique each of the trigger point is identified in the right side lumbosacral area ( total 3 trigger points identifeid in the right side l umbaosacral area )EACH injected with a mixture of ropivacaine 0.5% total of 9 mL mixed with 40 mg of Depo-Medrol each trigger point injected with a 3 ML of the mixture INJECTED IN EACH TRIGGER POINTS using 25-gauge needle ,injection done after negative aspiration and there was no paresthesia during the injection,patient tolerated the procedure well without any complications and she will follow up in the pain clinic in a few weeks
[2022-02-03 11:11] VITALS: BP 163/80; PULSE 62
== END 2022-02-03 11:24 | disposition home or self-care (01) ==
LOC: ORPAIN 09:01
PROVIDERS: ATTEND Specialist
DX: M46.1 Sacroiliitis, not elsewhere classified (principal); M79.18 Myalgia, other site
CPT/HCPCS: 20552; J1030; J2795; 20550

== ENCOUNTER → 2022-02-19 | Outpatient (CLI) | payer MEDICARE, OTHER ==
[2022-02-19 09:12] VITALS: BP 158/80; PULSE 61; RESP 18; TEMP 97.9
--- NOTE | 2022-02-19 14:42 | P.PAINPG ---
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 Pt states she experienced >50 % pain relief x 1 wk s/p procedure. Pain level is provoked at 8 /10 in intensity w walking/ standing, constant, localized in the lumbar spine, achy in character w shooting towards the BL hips. Pain is alleviated with ice, meds (Ibu, Tyl), topicals, sitting and rest. Interventional pain procedures completed include R SI, Lumbar TPIs Patient is currently on Ibu, Tyl Patient denies any side effects of the medication(s), denies excessive drowsiness or sleepiness, denies suicidal ideation and reports that the current pain medication is helping to control the pain and improve activities of daily living. Patient denies any motor or sensory deficits. Patient denies any fever or night sweats, denies any change in the bowel movements or urination. Physical Examination: -Constitutional: Cooperative. Not in acute distress . - Neurologic: Cranial nerve II to XII intact. No focal neurological deficits. - Psychatric: Alert & oriented x 3. Matching mood & appropriate affect. Judgment and insight intact. - Musculoskeletal: Cervical spine: Muscle bulk/ tone/ strength in the bilateral upper extremities normal Vertebral body tenderness to palpation over Spurling test positive Distraction test positive Facet loading test positive Thoracic spine Muscle bulk / tone/ strength in the bilateral paraspinal muscles normal Vertebral body tender to palpation over Facet loading test positive Lumbar spine: Motor bulk/ tone/ strength lower extremities , thigh and legs : 5/5 Deep tendon reflexes : Normal Knee Jerk. Normal Ankle Jerk . Vertebral body tenderness to palpation over Lumbar Facet Loading Test positive Straight Leg Raise: positive at 30 degrees right side/ left side Gaenslen's Test positive Sacral spine : Severe tenderness over the Sacroiliac joint: right side / left side Range of motion: Flexion of the lumbar spine <60 degrees Range of motion: Extension of the lumbar spine <20 degrees Gaenslen's Test positive Leonard test: positive right side / left side Thigh Thrust Test R Sacral Thrust Test Assessment and plan: Chronic low back pain secondary to lumbar degenerative disc disease, spondylosis with facet arthropathy without myelopathy Recommendation of R SI injection. 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 Risks, benefits of procedure discussed and pt verbalized understanding. Denies anticoagulant use or medical history of diabetes. All patient questions answered I have spent less than 30 minutes on patient care today. Dr Silva was available by phone for the evaluation of this patient. The time was used to review the medical records including relevant urine studies and Prescription history (MAPs), review of the available imaging, evaluation and examination of the patient, coordination of care with the medical staff and if applicable referring physicians, as well as creation of the medical record PQRS Narrative: Smoking Status Never smoker Hx Alcohol Use (MH) No Home Medications: Ambulatory Orders Latanoprost [Xalatan 0.005%] 1 drop BOTH EYES HS 07/18/17 Losartan Potassium 100 mg PO QAM 07/18/17 Omeprazole 20 mg PO DAILY PRN 07/18/17 Renavit Eye Vitamin 1 tab PO BID 07/18/17 Loratadine [Claritin] 10 mg PO DAILY 06/30/21 Metoprolol Succinate [Toprol XL] 25 mg PO QAM 06/30/21 Lidocaine 5% Patch [Lidoderm] 1 each TP DAILY PRN 09/29/21 Gabapentin [Neurontin] 200 mg PO BID 12/01/21 Cholecalciferol [Vitamin D3 (25 Mcg = 1000 Iu)] 25 mcg PO MOWEFR 01/29/22 Controlled Substance Measures - Controlled Substance Measures Is patient prescribed a controlled substance at discharge?: No
== END ==
LOC: PNWHC3 08:42
PROVIDERS: ATTEND Specialist
DX: M47.816 Spondylosis without myelopathy or radiculopathy, lumbar region (principal); M51.36 Other intervertebral disc degeneration, lumbar region; Z88.1 Allergy status to other antibiotic agents; Z88.2 Allergy status to sulfonamides; Z88.0 Allergy status to penicillin; Z91.013 Allergy to seafood
CPT/HCPCS: 99211

== ENCOUNTER → 2022-09-29 | Outpatient (CLI) | payer MEDICARE, OTHER ==
--- NOTE | 2022-09-30 13:42 | MM ---
Reason for Exam: Screening (asymptomatic). Last screening mammogram was performed 12 month(s) ago. Patient History: Menarche at age 15. First Full-Term at age 24. Left ovary removed at age 37. Right ovary removed at age 37. Hysterectomy at age 37. Postmenopausal. Patient has history of breast feeding. Other cancer, age 75. Patient used Estrogen for 3 years. Risk Values: Bela 5 year model risk: 1.1%. NCI Lifetime model risk: 1.1%. Prior Study Comparison: 08/17/2019 Bilateral Screening Mammogram, [facility]. 09/13/2020 Bilateral Screening Mammogram, [facility]. 09/16/2021 Bilateral MG 3D screening mammo w/cad, [facility]. Tissue Density: The breast tissue is heterogeneously dense. This may lower the sensitivity of mammography. Findings: Analyzed By CAD. There is no suspicious group of microcalcifications or new suspicious mass in either breast. Overall Assessment: Benign, BI-RAD 2 Management: Screening Mammogram of both breasts in 1 year. . Patient should continue monthly self-breast exams. A clinical breast exam by your physician is recommended on an annual basis. This exam should not preclude additional follow-up of suspicious palpable abnormalities. Note on Bela scores and lifetime risk: 1. A Bela score greater than 3% is considered moderate risk. If this is the case, consider specialist referral to assess eligibility for a risk reducing agent. 2. If overall lifetime risk for the development of breast cancer is 20% or higher, the patient may qualify for future screening with alternating mammogram and breast MRI. Electronically signed and approved by: Enrike Blackwell M.D. Radiologis
== END | disposition home or self-care (01) ==
LOC: RADMAMWWP 14:27
PROVIDERS: ATTEND Family Medicine
DX: Z12.31 Encounter for screening mammogram for malignant neoplasm of breast (principal); Z78.0 Asymptomatic menopausal state
CPT/HCPCS: 77063; 77067

== ENCOUNTER 2022-10-02 01:43 | Observation (INO) | payer MEDICARE, OTHER ==
[2022-10-02 01:50] VITALS: RESP 18
[2022-10-02] MEDS ORDERED: SODIUM CHLORIDE 0.9% 1,000 ML IV STA (01:55)
[2022-10-02] MEDS ORDERED: SODIUM CHLORIDE 0.9% 500 ML 500 ML IV STA (01:55)
[2022-10-02] MEDS ORDERED: PROCHLORPERAZINE INJ 10 MG/2 ML VIAL IVP STA (01:55)
[2022-10-02] MEDS ORDERED: LORazepam 2 MG/ML INJ IV STA (02:12)
[2022-10-02] MEDS ORDERED: diphenhydrAMINE 50 MG/ML 1 ML VIAL IVP STA (02:12)
--- NOTE | 2022-10-02 02:14 | ED ---
Dizziness HPI - General Chief Complaint: Dizziness Stated Complaint: Dizziness Time Seen by Provider: 10/02/22 01:55 Source: patient, EMS, RN notes reviewed, old records reviewed Mode of arrival: EMS Limitations: no limitations - History of Present Illness Initial Comments: This is a 87-year-old female to the ER today. Patient presents today for evalua tion of sudden onset dizziness. Patient woke from sleep with severe dizziness room was spinning around uncontrollably. Patient is very diaphoretic lightheaded dizzy nauseous and vomiting. Patient states he felt well when she went to bed last night but currently feels terrible. The room is spinning around 8 time she opens her eyes and she feels severely off-balance. Severe sweating with no chest pain mild shortness of breath. She has history of high blood pressure but no real significant medical history aside from that. MD Complaint: dizziness, other (Nausea vomiting) -: minutes(s) Timing: awoke with symptoms Description: "room spinning", off-balance, nausea History of Same: No History of Trauma: No Severity: severe Improves With: nothing Worsens With: nothing Associated Symptoms: ataxia - Related Data Home Medications Medication Instructions Recorded Confirmed Latanoprost [Xalatan 0.005%] 1 drop BOTH EYES HS 07/18/17 10/02/22 Losartan Potassium 100 mg PO W/LUNCH 07/18/17 10/02/22 Loratadine [Claritin] 10 mg PO W/LUNCH 06/30/21 10/02/22 Metoprolol Succinate [Toprol XL] 25 mg PO W/LUNCH 06/30/21 10/02/22 Gabapentin [Neurontin] 200 mg PO BID 12/01/21 10/02/22 Cholecalciferol (Vitamin D3) 75 mcg PO W/LUNCH 10/02/22 10/02/22 [Vitamin D3 (3000 Iu)] Allergies Allergy/AdvReac Type Severity Reaction Status Date / Time clindamycin Allergy Severe Rash/Hives Verified 10/02/22 08:27 Penicillins Allergy Severe Swelling Verified 10/02/22 08:27 Sulfa (Sulfonamide Allergy Severe Swelling Verified 10/02/22 08:27 Antibiotics) corn Allergy Itching Verified 10/02/22 08:27 shellfish derived [Lobster] Allergy skin test Verified 10/02/22 08:27 tuna oil Allergy skin test Verified 10/02/22 08:27 nitrofurantoin AdvReac Hallucinati Verified 10/02/22 15:00 ons Review of Systems ROS Statement: Those systems with pertinent positive or pertinent negative responses have been documented in the HPI. ROS Other: All systems not noted in ROS Statement are negative. Past Medical History Past Medical History: Hypertension Additional Past Medical History / Comment(s): kidney stones, back problems, bul ging discs and spurs, neuropathy to sunny hands History of Any Multi-Drug Resistant Organisms: None Reported Past Surgical History: Appendectomy, Hysterectomy Additional Past Surgical History / Comment(s): vein stripped bilateral legs. BILATERAL CATARACT. LASER PROCEDURE LEFT GLAUCOMA Past Anesthesia/Blood Transfusion Reactions: No Reported Reaction Past Psychological History: No Psychological Hx Reported Smoking Status: Never smoker - Past Family History Father Family Medical History: Congestive Heart Failure (CHF) General Exam - General Exam Comments Initial Comments: Severe dizziness General appearance: alert, in no apparent distress Head exam: Present: atraumatic, normocephalic, normal inspection Eye exam: Present: normal appearance, PERRL, EOMI, nystagmus. Absent: scleral icterus, conjunctival injection, periorbital swelling ENT exam: Present: normal exam, mucous membranes moist Neck exam: Present: normal inspection. Absent: tenderness, meningismus, lymphadenopathy Respiratory exam: Present: normal lung sounds bilaterally. Absent: respiratory distress, wheezes, rales, rhonchi, stridor Cardiovascular Exam: Present: regular rate, normal rhythm, normal heart sounds. Absent: systolic murmur, diastolic murmur, rubs, gallop, clicks GI/Abdominal exam: Present: soft, normal bowel sounds. Absent: distended, tenderness, guarding, rebound, rigid Extremities exam: Present: normal inspection, full ROM, normal capillary refill. Absent: tenderness, pedal edema, joint swelling, calf tenderness Back exam: Present: normal inspection Neurological exam: Present: alert, oriented X3, CN II-XII intact Psychiatric exam: Present: normal affect, normal mood Skin exam: Present: warm, dry, intact, normal color. Absent: rash Course Vital Signs 10/02/22 10/02/22 10/02/22 01:45 01:50 02:00 Pulse Rate 67 60 58 L Respiratory 18 18 20 Rate Blood Pressure 165/78 165/78 165/78 O2 Sat by Pulse 93 L 93 L 88 L Oximetry 10/02/22 10/02/22 10/02/22 03:00 03:40 12:28 Pulse Rate 62 60 65 Respiratory 20 18 18 Rate Blood Pressure 171/76 114/47 157/69 O2 Sat by Pulse 97 98 97 Oximetry 10/02/22 13:58 Pulse Rate 72 Respiratory 18 Rate Blood Pressure 156/78 O2 Sat by Pulse 97 Oximetry - Reevaluation(s) Reevaluation #1: 10/02/22 02:14 Medical records reviewed Reevaluation #2: symptoms are unchanged Reevaluation #3: Patient is unable to ambulate here in the emergency department Reevaluation #4: 10/02/22 02:14 Was pt. sent in by a medical professional or institution ([facility], OXIDATION OPERATOR, urgent care, hospital, or jail...) When possible be specific @ -no Did you speak to anyone other than the patient for history (EMS, parent, family, police, friend...)? What history was obtained from this source @ -no Did you review nursing and triage notes (agree or disagree)? Why? @ -agree Are old charts reviewed (outside hosp., previous admission, EMS record, old EKG, old radiological studies, urgent care reports/EKG's, jail records)? Report findings @ -yes Differential Diagnosis (chest pain, altered mental status, abdominal pain women, abdominal pain men, vaginal bleeding, weakness, fever, dyspnea, syncope, headache, dizziness, GI bleed, back pain, seizure, CVA, palpatations, mental health, musculoskeletal)? @ -prior EKG interpreted by me (3pts min.). @ -yes X-rays interpreted by me (1pt min.). @ -yes CT interpreted by me (1pt min.). @ -no U/S interpreted by me (1pt. min.). @ -no What testing was considered but not performed or refused? (CT, X-rays, U/S, labs)? Why? @ -none What meds were considered but not given or refused? Why? @ -none Did you discuss the management of the patient with other professionals (professionals i.e. [facility], OXIDATION OPERATOR, lab, RT, psych nurse, executive secretary social welfare, customer contact representative, teacher, chief fundraising officer, case supervisor)? Give summary @ -no Was smoking cessation discussed for >3mins.? @ -no Was critical care preformed (if so, how long)? @ -no Were there social determinants of health that impacted care today? How? (Homelessness, low income, unemployed, alcoholism, drug addiction, transportation, low edu. Level, literacy, decrease access to med. care, assisted, rehab)? @ -none Was there de-escalation of care discussed even if they declined (Discuss DNR or withdrawal of care, Hospice)? DNR status @ -no What co-morbidities impacted this encounter? (DM, HTN, Smoking, COPD, CAD, Cancer, CVA, ARF, Chemo, Hep., AIDS, mental health diagnosis, sleep apnea, morbid obesity)? @ -none Was patient admitted / discharged? Hospital course, mention meds given and route, prescriptions, significant lab abnormalities, going to OR and other pertinent info. @ - Undiagnosed new problem with uncertain prognosis? @ -no Drug Therapy requiring intensive monitoring for toxicity (Heparin, Nitro, Insulin, Cardizem)? @ -no Were any procedures done? @ -no Diagnosis/symptom? @ - Acute, or Chronic, or Acute on Chronic? @ -Acute Uncomplicated (without systemic symptoms) or Complicated (systemic symptoms)? @ -Complicated Side effects of treatment? @ -no Exacerbation, Progression, or Severe Exacerbation? @ -exacerbation Poses a threat to life or bodily function? How? (Chest pain, USA, AL, pneumonia, PE, COPD, DKA, ARF, appy, cholecystitis, CVA, Diverticulitis, Homicidal, Suicidal, threat to staff... and all critical care pts) @ -yes Reevaluation #5: 10/02/22 02:14 Differential Dyspnea: Coronary syndrome, arrhythmia, tamponade, asthma, COPD, pulmonary embolism, pneumonia, pneumothorax, pulmonary effusion, anaphylaxis, diabetic ketoacidosis, flailed chest, pulmonary contusion, diaphragmatic rupture, anemia, neuromuscular, this is not meant to be an all-inclusive list. EKG Findings - EKG Comments: EKG Findings:: EKG is A. fib 61 QRS 125 QTC 434 - EKG Results: EKG: interpreted by JAYSON Medical Decision Making - Lab Data Result diagrams: 10/02/22 02:07 10/02/22 02:07 Lab Results 10/02/22 10/02/22 10/02/22 Range/Units 02:07 02:07 02:07 WBC 5.2 (3.8-10.6) k/uL RBC 4.04 (3.80-5.40) m/uL Hgb 12.8 (11.4-16.0) gm/dL Hct 38.4 (34.0-46.0) % MCV 95.1 (80.0-100.0) fL MCH 31.6 (25.0-35.0) pg MCHC 33.2 (31.0-37.0) g/dL RDW 13.0 (11.5-15.5) % Plt Count 238 (150-450) k/uL MPV 7.7 Neutrophils % 53 % Lymphocytes % 32 % Monocytes % 7 % Eosinophils % 6 % Basophils % 1 % Neutrophils # 2.7 (1.3-7.7) k/uL Lymphocytes # 1.6 (1.0-4.8) k/uL Monocytes # 0.4 (0-1.0) k/uL Eosinophils # 0.3 (0-0.7) k/uL Basophils # 0.0 (0-0.2) k/uL PT 10.0 (9.0-12.0) sec INR 0.9 (<1.2) APTT 21.5 L (22.0-30.0) sec Sodium 136 L (137-145) mmol/L Potassium 4.5 (3.5-5.1) mmol/L Chloride 105 (98-107) mmol/L Carbon Dioxide 24 (22-30) mmol/L Anion Gap 7 mmol/L BUN 25 H (7-17) mg/dL Creatinine 0.85 (0.52-1.04) mg/dL Est GFR (CKD-EPI)AfAm 73 (>60 ml/min/1.73 sqM) Est GFR (CKD-EPI)NonAf 63 (>60 ml/min/1.73 sqM) Glucose 143 H (74-99) mg/dL Plasma Lactic Acid Silvino (0.7-2.0) mmol/L Calcium 8.9 (8.4-10.2) mg/dL Phosphorus 4.3 (2.5-4.5) mg/dL Magnesium 2.1 (1.6-2.3) mg/dL Total Bilirubin 0.7 (0.2-1.3) mg/dL AST 33 (14-36) U/L ALT 27 (4-34) U/L Alkaline Phosphatase 30 L (38-126) U/L Troponin I (0.000-0.034) ng/mL NT-Pro-B Natriuret Pep 135 pg/mL Total Protein 7.0 (6.3-8.2) g/dL Albumin 3.8 (3.5-5.0) g/dL 10/02/22 10/02/22 Range/Units 02:07 02:07 WBC (3.8-10.6) k/uL RBC (3.80-5.40) m/uL Hgb (11.4-16.0) gm/dL Hct (34.0-46.0) % MCV (80.0-100.0) fL MCH (25.0-35.0) pg MCHC (31.0-37.0) g/dL RDW (11.5-15.5) % Plt Count (150-450) k/uL MPV Neutrophils % % Lymphocytes % % Monocytes % % Eosinophils % % Basophils % % Neutrophils # (1.3-7.7) k/uL Lymphocytes # (1.0-4.8) k/uL Monocytes # (0-1.0) k/uL Eosinophils # (0-0.7) k/uL Basophils # (0-0.2) k/uL PT (9.0-12.0) sec INR (<1.2) APTT (22.0-30.0) sec Sodium (137-145) mmol/L Potassium (3.5-5.1) mmol/L Chloride (98-107) mmol/L Carbon Dioxide (22-30) mmol/L Anion Gap mmol/L BUN (7-17) mg/dL Creatinine (0.52-1.04) mg/dL Est GFR (CKD-EPI)AfAm (>60 ml/min/1.73 sqM) Est GFR (CKD-EPI)NonAf (>60 ml/min/1.73 sqM) Glucose (74-99) mg/dL Plasma Lactic Acid Silvino 1.6 (0.7-2.0) mmol/L Calcium (8.4-10.2) mg/dL Phosphorus (2.5-4.5) mg/dL Magnesium (1.6-2.3) mg/dL Total Bilirubin (0.2-1.3) mg/dL AST (14-36) U/L ALT (4-34) U/L Alkaline Phosphatase (38-126) U/L Troponin I <0.012 (0.000-0.034) ng/mL NT-Pro-B Natriuret Pep pg/mL Total Protein (6.3-8.2) g/dL Albumin (3.5-5.0) g/dL Disposition Clinical Impression: Vertigo, Dizziness Disposition: HOME SELF-CARE Is patient prescribed a controlled substance at d/c from ED?: No Time of Disposition: 04:45
[2022-10-02 02:46] LABS: ALT 27 U/L (4-34); African American GFR (CKD) 73 (>60 ml/min/1.73 sqM); Albumin 3.8 g/dL (3.5-5.0); Anion Gap 7 mmol/L; Blood Urea Nitrogen 25 mg/dL (7-17); Calcium 8.9 mg/dL (8.4-10.2); Carbon Dioxide 24 mmol/L (22-30); Chloride 105 mmol/L (98-107); Glucose 143 mg/dL (74-99); Non-African American GFR(CKD) 63 (>60 ml/min/1.73 sqM); Sodium 136 mmol/L (137-145); Total Bilirubin 0.7 mg/dL (0.2-1.3)
[2022-10-02 02:47] LABS: Basophils % (A) 1 %; Eosinophils # (A) 0.3 k/uL (0-0.7); Eosinophils % (A) 6 %; HCT 38.4 % (34.0-46.0); HGB 12.8 gm/dL (11.4-16.0); Lymphocytes # (A) 1.6 k/uL (1.0-4.8); Lymphocytes % (A) 32 %; MCH 31.6 pg (25.0-35.0); MCHC 33.2 g/dL (31.0-37.0); MCV 95.1 fL (80.0-100.0); Magnesium 2.1 mg/dL (1.6-2.3); Mean Platelet Volume 7.7; Monocytes # (A) 0.4 k/uL (0-1.0); Monocytes % (A) 7 %; Neutrophils # (A) 2.7 k/uL (1.3-7.7); Neutrophils % (A) 53 %; Phosphorus 4.3 mg/dL (2.5-4.5); Platelet Count 238 k/uL (150-450); Potassium 4.5 mmol/L (3.5-5.1); RBC 4.04 m/uL (3.80-5.40); WBC 5.2 k/uL (3.8-10.6)
[2022-10-02 02:48] LABS: AST 33 U/L (14-36); Alkaline Phosphatase 30 U/L (38-126)
--- NOTE | 2022-10-02 02:50 | CT ---
EXAMINATION TYPE: CT brain wo con CT DLP: 1171.3 mGycm, Automated exposure control for dose reduction was used. DATE OF EXAM: 10/02/2022 2:43 AM COMPARISON: None. Prior CT Brain from . CLINICAL INDICATION:Female, 87 years old with history of weakness, Weakness and fatigue. TECHNIQUE: Brain: Multiple axial CT images of the brain were obtained without IV contrast. Coronal and sagittal reformats reviewed. FINDINGS: Brain: Extra-axial spaces: No abnormal extra-axial fluid collections. Ventricular system: Within normal limits Cerebral parenchyma: No acute intraparenchymal hemorrhage or mass effect. The slater-white junction is well differentiated. Scattered hypoattenuating areas are seen within the periventricular white matte r. Cerebellum: Unremarkable. Mass effect: No evidence of midline shift. Intracranial vasculature: Atherosclerotic calcifications of the intracranial vessels. Soft tissues: Normal. Calvarium/osseous structures: No depressed skull fracture. Paranasal sinuses and mastoid air cells: Clear Visualized orbits: Bilateral aphakia. Bilateral scleral calcifications. IMPRESSION: 1. No acute intracranial process. 2. Nonspecific white matter changes, likely secondary to chronic small vessel ischemic disease.
[2022-10-02 02:55] LABS: NT-Pro-B-Type Natriuretic Pept 135 pg/mL
[2022-10-02 02:59] LABS: INR 0.9 (<1.2); Partial Thromboplastin Time 21.5 sec (22.0-30.0)
[2022-10-02] MEDS ORDERED: MORPHINE SULFATE 4 MG/ML SYRINGE IV PRN (04:38)
[2022-10-02] MEDS ORDERED: ONDANSETRON 4 MG/2 ML VIAL IVP PRN (04:38)
[2022-10-02] MEDS ORDERED: NALOXONE 0.4 MG/ML 1 ML VIAL IV PRN (04:38)
[2022-10-02] MEDS: SODIUM CHLORIDE 0.9% 1,000 ML IV SCH ×2 (05:02→12:38)
[2022-10-02] MEDS ORDERED: METOPROLOL SUCCINATE (ER) 25 MG TAB.ER.24H PO SCH (13:45)
[2022-10-02] MEDS ORDERED: LOSARTAN 50 MG TAB PO SCH (13:45)
[2022-10-02 13:58] VITALS: BP 156/78; PULSE 72
--- NOTE | 2022-10-02 17:13 | P.HPIM ---
History of Present Illness H&P Date: 10/02/22 Chief Complaint: Room spinning This is a pleasant 87-year-old patient who follows with Dr. Lillian Wakefield. Chronic stable medical conditions include hypertension, kidney stones, low back pain from Wednesday to , peripheral neuropathy, does use a walker when goes S in the house. Lives alone. Early this morning passed benign patient woke up from sleeping feeling dizzy. Found everything to be spinning. Had nausea. Was off balance and unable to walk. Some perspiration. No chest pain. No change in vision. No change in speech. Came to the ER. I came to see the patient patient is actually feeling better. Symptoms are greatly improved. Denied any change in vision. No focal weakness. No change in speech. Review of systems: GEN.: None EYES: None HEENT: None NECK: None RESPIRATORY: None CARDIOVASCULAR: None GASTROINTESTINAL: None GENITOURINARY: None MUSCULOSKELETAL: Joint pains LYMPHATICS: None HEMATOLOGICAL: None PSYCHIATRY: None NEUROLOGICAL: As above Past medical history to include: Hypertension, kidney stones, low back pain from herniated disc, peripheral neuropathy Social history: No smoking. Alcohol rarely. Does use a walker to go outside. Lives alone. Physical examination: VITAL SIGNS: Afebrile, 67, 18, 165/78, 93% room air upon presentation GENERAL: BMI 35, sitting up in a chair awake comfortable. EYES: Pupils equal. Conjunctiva normal. HEENT: External appearance of nose and ears normal, oral cavity grossly normal. NECK: JVD not raised; masses not palpable. HEART: First and second heart sounds are normal; no edema. LUNGS: Respiratory rate normal; clear to auscultation. ABDOMEN: Soft, nontender, liver spleen not palpable, no masses palpable. PSYCH: Alert and oriented x3; mood and affect normal. MUSCULOSKELETAL:No Clubbing/cyanosis;muscles-grossly intact. OA NEUROLOGICAL: Cranial nerves grossly intact; no facial asymmetry, power and sensation grossly intact. No nystagmus. No cerebellar signs. LYMPHATICS: No lymph nodes palpable in the axilla and neck INVESTIGATIONS, reviewed in the clinical context: White count 5.2 hemoglobin 12.8 platelets 228 sodium 136 potassium 4.5 creatinine 0.85 Troponin I less than 0.0123 EKG tracing personally reviewed by me-normal sinus rhythm. Computed tomography scan brain without contrast: Chroniccervical) changes. Assessment and plan: -Probable acute benign paroxysmal positional vertigo. Patient was sleeping. Suddenly woke up with vertigo. Think spinning around. Some nausea. States symptoms are greatly improved/resolved. No cerebellar signs on examination. Plan increase activity. -Idiopathic peripheral neuropathy Neurontin -Essential hypertension Toprol-XL, losartan -Primary osteoarthritic including chronic low back pain, disc Tylenol as needed Increase activity. Discussed with patient. Remains stable. Discharged home. 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 BILATERAL CATARACT. LASER PROCEDURE LEFT GLAUCOMA Past Anesthesia/Blood Transfusion Reactions: No Reported Reaction Past Psychological History: No Psychological Hx Reported Smoking Status: Never smoker - Past Family History Father Family Medical History: Congestive Heart Failure (CHF) Medications and Allergies Home Medications Medication Instructions Recorded Confirmed Type Latanoprost [Xalatan 0.005%] 1 drop BOTH EYES HS 07/18/17 10/02/22 History Losartan Potassium 100 mg PO W/LUNCH 07/18/17 10/02/22 History Loratadine [Claritin] 10 mg PO W/LUNCH 06/30/21 10/02/22 History Metoprolol Succinate [Toprol XL] 25 mg PO W/LUNCH 06/30/21 10/02/22 History Gabapentin [Neurontin] 200 mg PO BID 12/01/21 10/02/22 History Cholecalciferol (Vitamin D3) 75 mcg PO W/LUNCH 10/02/22 10/02/22 History [Vitamin D3 (3000 Iu)] Allergies Allergy/AdvReac Type Severity Reaction Status Date / Time clindamycin Allergy Severe Rash/Hives Verified 10/02/22 08:27 Penicillins Allergy Severe Swelling Verified 10/02/22 08:27 Sulfa (Sulfonamide Allergy Severe Swelling Verified 10/02/22 08:27 Antibiotics) corn Allergy Itching Verified 10/02/22 08:27 shellfish derived [Lobster] Allergy skin test Verified 10/02/22 08:27 tuna oil Allergy skin test Verified 10/02/22 08:27 nitrofurantoin AdvReac Hallucinati Verified 08/25/23 15:00 ons Physical Exam Vitals: Vital Signs Pulse Resp BP Pulse Ox 10/02/22 13:58 72 18 156/78 97 10/02/22 12:28 65 18 157/69 97 10/02/22 03:40 60 18 114/47 98 10/02/22 03:00 62 20 171/76 97 10/02/22 02:00 58 L 20 165/78 88 L 10/02/22 01:50 60 18 165/78 93 L 10/02/22 01:45 67 18 165/78 93 L Intake and Output 10/02/22 10/02/22 10/02/22 06:59 14:59 22:59 Other: Weight 104.326 kg Results CBC & Chem 7: 10/02/22 02:07 10/02/22 02:07 Labs: Abnormal Lab Results - Last 24 Hours (Table) 10/02/22 10/02/22 Range/Units 02:07 02:07 APTT 21.5 L (22.0-30.0) sec Sodium 136 L (137-145) mmol/L BUN 25 H (7-17) mg/dL Glucose 143 H (74-99) mg/dL Alkaline Phosphatase 30 L (38-126) U/L
--- NOTE | 2022-10-02 18:32 | P.DS ---
Providers Date of admission: 10/02/22 04:40 Expected date of discharge: 10/02/22 Attending physician: Moises Landry Primary care physician: Christel Wakefield [place] [facility] Course: Chief Complaint: Room spinning This is a pleasant 87-year-old patient who follows with Dr. Lillian Wakefield. Chronic stable medical conditions include hypertension, kidney stones, low back pain from Wednesday to , peripheral neuropathy, does use a walker when goes S in the house. Lives alone. Early this morning passed benign patient woke up from sleeping feeling dizzy. Found everything to be spinning. Had nausea. Was off balance and unable to walk. Some perspiration. No chest pain. No change in vision. No change in speech. Came to the ER. I came to see the patient patient is actually feeling better. Symptoms are greatly improved. Denied any change in vision. No focal weakness. No change in speech. Patient continued to do well. Discharged home. Past medical history to include: Hypertension, kidney stones, low back pain from herniated disc, peripheral neuropathy Social history: No smoking. Alcohol rarely. Does use a walker to go outside. Lives alone. Physical examination: VITAL SIGNS: 72, 18, 156/78, 97% room air GENERAL: BMI 35, sitting up in a chair awake comfortable. EYES: Pupils equal. Conjunctiva normal. HEENT: External appearance of nose and ears normal, oral cavity grossly normal. NECK: JVD not raised; masses not palpable. HEART: First and second heart sounds are normal; no edema. LUNGS: Respiratory rate normal; clear to auscultation. ABDOMEN: Soft, nontender, liver spleen not palpable, no masses palpable. PSYCH: Alert and oriented x3; mood and affect normal. MUSCULOSKELETAL:No Clubbing/cyanosis;muscles-grossly intact. OA NEUROLOGICAL: Cranial nerves grossly intact; no facial asymmetry, power and sensation grossly intact. No nystagmus. No cerebellar signs. INVESTIGATIONS, reviewed in the clinical context: White count 5.2 hemoglobin 12.8 platelets 228 sodium 136 potassium 4.5 creatinine 0.85 Troponin I less than 0.0123 EKG tracing personally reviewed by me-normal sinus rhythm. Computed tomography scan brain without contrast: Chroniccervical) changes. Assessment and plan: -acute benign paroxysmal positional vertigo. : Resolved Patient was sleeping. Suddenly woke up with vertigo. Think spinning around. Some nausea. States symptoms are greatly improved/resolved. No cerebellar signs on examination. -Idiopathic peripheral neuropathy Neurontin -Essential hypertension Toprol-XL, losartan -Primary osteoarthritic including chronic low back pain, disc Tylenol as needed Disposition: Home Plan - Discharge Summary New Discharge Prescriptions: Continue Losartan Potassium 100 mg PO W/LUNCH Latanoprost [Xalatan 0.005%] 1 drop BOTH EYES HS Loratadine [Claritin] 10 mg PO W/LUNCH Gabapentin [Neurontin] 200 mg PO BID Metoprolol Succinate [Toprol XL] 25 mg PO W/LUNCH Cholecalciferol (Vitamin D3) [Vitamin D3 (3000 Iu)] 75 mcg PO W/LUNCH Discharge Medication List Latanoprost [Xalatan 0.005%] 1 drop BOTH EYES HS 07/18/17 [History] Losartan Potassium 100 mg PO W/LUNCH 07/18/17 [History] Loratadine [Claritin] 10 mg PO W/LUNCH 06/30/21 [History] Metoprolol Succinate [Toprol XL] 25 mg PO W/LUNCH 06/30/21 [History] Gabapentin [Neurontin] 200 mg PO BID 12/01/21 [History] Cholecalciferol (Vitamin D3) [Vitamin D3 (3000 Iu)] 75 mcg PO W/LUNCH 10/02/22 [History] Follow up Appointment(s)/Referral(s): Christel Wakefield MD [Primary Care Provider] - 1-2 days Discharge Disposition: HOME SELF-CARE
[2022-10-02] MEDS ORDERED: GABAPENTIN 100 MG CAP PO SCH (21:00)
[2022-10-02] MEDS ORDERED: LATANOPROST 0.005% OPHTH DROPS 2.5 ML BTL BOTH EYES SCH (21:00)
== END 2022-10-02 17:35 | disposition home or self-care (01) ==
LOC: EC 01:43 → 6NMEDSUR 04:40
PROVIDERS: ADMIT Hospitalist; ATTEND Hospitalist
DX: H81.10 Benign paroxysmal vertigo, unspecified ear (principal); R61 Generalized hyperhidrosis; I10 Essential (primary) hypertension; G60.9 Hereditary and idiopathic neuropathy, unspecified; M19.90 Unspecified osteoarthritis, unspecified site; G89.29 Other chronic pain; Z79.899 Other long term (current) drug therapy; Z91.013 Allergy to seafood; Z88.0 Allergy status to penicillin; Z91.018 Allergy to other foods; Z88.2 Allergy status to sulfonamides; Z91.048 Other nonmedicinal substance allergy status; Z90.710 Acquired absence of both cervix and uterus; Z87.442 Personal history of urinary calculi; Z82.49 Family history of ischemic heart disease and other diseases of the circulatory system
CPT/HCPCS: 96361; 96374; 96375; 99285; 36415; 93005; 83880; 80053; 83605; 83735; 84100; 84484; 85025; 85610; 85730; 70450; G0378; J2060; J1200; J0780

== ENCOUNTER 2023-02-01 21:26 | Emergency (ER) | payer MEDICARE, OTHER ==
[2023-02-01 22:03] VITALS: TEMP 97.9
--- NOTE | 2023-02-01 22:31 | ED ---
General Adult HPI - General Source: patient, family, RN notes reviewed Mode of arrival: ambulatory Limitations: no limitations <Josette Joseph - Last Filed: 02/01/23 22:31> - History of Present Illness Onset/Timin -: days(s) Location: abdomen Quality: dull Consistency: constant Improves with: none Worsens with: none Associated Symptoms: nausea/vomiting Treatments Prior to Arrival: none <Beka Rubalcava - Last Filed: 02/02/23 03:22> - General Chief complaint: Nausea/Vomiting/Diarrhea Stated complaint: UTI Vomiting - History of Present Illness Initial comments: 87-year-old female presents emergency department for evaluation of dysuria, suprapubic pain, nausea, vomiting. Symptoms started on Wednesday. Patient does admit to having frequent urinary tract infections. She does state that she often vomits when she has them. She denies fever. (Josette Joseph) - Related Data Home Medications Medication Instructions Recorded Confirmed Latanoprost [Xalatan 0.005%] 1 drop BOTH EYES HS 07/18/17 10/02/22 Losartan Potassium 100 mg PO W/LUNCH 07/18/17 10/02/22 Loratadine [Claritin] 10 mg PO W/LUNCH 06/30/21 10/02/22 Metoprolol Succinate [Toprol XL] 25 mg PO W/LUNCH 06/30/21 10/02/22 Gabapentin [Neurontin] 200 mg PO BID 12/01/21 10/02/22 Cholecalciferol (Vitamin D3) 75 mcg PO W/LUNCH 10/02/22 10/02/22 [Vitamin D3 (3000 Iu)] Previous Rx's Medication Instructions Recorded Cephalexin [Keflex] 500 mg PO Q6HR #28 cap 02/02/23 Allergies Allergy/AdvReac Type Severity Reaction Status Date / Time clindamycin Allergy Severe Rash/Hives Verified 02/01/23 21:44 Penicillins Allergy Severe Swelling Verified 02/01/23 21:44 Sulfa (Sulfonamide Allergy Severe Swelling Verified 02/01/23 21:44 Antibiotics) corn Allergy Itching Verified 02/01/23 21:44 shellfish derived [Lobster] Allergy skin test Verified 02/01/23 21:44 tuna oil Allergy skin test Verified 02/01/23 21:44 nitrofurantoin AdvReac Hallucinati Verified 02/01/23 21:44 ons Review of Systems ROS Other: All systems not noted in ROS Statement are negative. <Josette Joseph - Last Filed: 02/01/23 22:31> ROS Other: All systems not noted in ROS Statement are negative. Constitutional: Denies: fever, chills Respiratory: Denies: cough, dyspnea Cardiovascular: Denies: chest pain, palpitations, edema, syncope Gastrointestinal: Reports: abdominal pain, nausea, vomiting. Denies: diarrhea, constipation, melena, hematochezia Genitourinary: Denies: dysuria, hematuria Musculoskeletal: Denies: back pain Skin: Denies: rash Neurological: Denies: headache, weakness, numbness <Beka Rubalcava - Last Filed: 02/02/23 03:22> ROS Statement: Those systems with pertinent positive or pertinent negative responses have been documented in the HPI. 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 BILATERAL CATARACT. LASER PROCEDURE LEFT GLAUCOMA Past Anesthesia/Blood Transfusion Reactions: No Reported Reaction Past Psychological History: No Psychological Hx Reported Smoking Status: Never smoker - Past Family History Father Family Medical History: Congestive Heart Failure (CHF) <Josette Joseph - Last Filed: 02/01/23 22:31> General Exam Limitations: no limitations <Josette Joseph - Last Filed: 02/01/23 22:31> General appearance: alert Head exam: Present: atraumatic, normocephalic Eye exam: Present: normal appearance. Absent: scleral icterus, conjunctival injection Neck exam: Present: normal inspection Respiratory exam: Present: normal lung sounds bilaterally. Absent: respiratory distress, wheezes, rales, rhonchi, stridor Cardiovascular Exam: Present: regular rate, normal rhythm, systolic murmur. Absent: diastolic murmur, rubs, gallop GI/Abdominal exam: Present: soft. Absent: distended, tenderness, guarding, rebound, rigid, mass Extremities exam: Present: normal inspection, normal capillary refill. Absent: pedal edema, calf tenderness Back exam: Present: normal inspection. Absent: CVA tenderness (R), CVA tenderness (L) Neurological exam: Present: alert Skin exam: Present: warm, dry, intact, normal color. Absent: rash <Beka Rubalcava - Last Filed: 02/02/23 03:22> - General Exam Comments Initial Comments: Visual Physical Exam Vital signs reviewed General: Well-appearing, nontoxic, no acute distress. Head: Normocephalic, atraumatic Eyes: PERRLA, EOMI ENT: Airway patent Chest: Nonlabored breathing Skin: No visual rash, normal skin tone Neuro: Alert and oriented 3 Musculoskeletal: No gross abnormalities (Josette Joseph) Course Vital Signs 02/01/23 21:42 Temperature 97.9 F Pulse Rate 81 Respiratory 16 Rate Blood Pressure 190/82 O2 Sat by Pulse 94 L Oximetry Medical Decision Making <Josette Joseph - Last Filed: 02/01/23 22:31> - Lab Data Result diagrams: 02/01/23 23:19 02/01/23 23:19 <Beka Rubalcava - Last Filed: 02/02/23 03:22> - Medical Decision Making uick note preformed by Josette Joseph PA-C (Josette Joseph) Patient is 87-year-old woman with nausea and vomiting and she suspects urinary tract infection as she has had very dark urine and dysuria. The patient's workup does reveal probable urinary tract infection and elevated creatinine. She is given dose of antibiotics and a was going to admit the patient but she states she is feeling much better and would like to go home. She understands that the creatinine is elevated and that she must return here if she is not having marked improvement, and she understands she must have the creatinine rechecked in 2 days to ensure that it is going back to baseline. Discussed concerns of possible stone in patient states she has had kidney stones before and this does not feel consistent with that. She will have very low threshold to return here (Beka Rubalcava) - Lab Data Lab Results 02/01/23 02/01/23 02/01/23 Range/Units 23:19 23:19 23:19 WBC 12.5 H (3.8-10.6) k/uL RBC 4.49 (3.80-5.40) m/uL Hgb 14.3 (11.4-16.0) gm/dL Hct 42.8 (34.0-46.0) % MCV 95.4 (80.0-100.0) fL MCH 31.8 (25.0-35.0) pg MCHC 33.4 (31.0-37.0) g/dL RDW 12.8 (11.5-15.5) % Plt Count 243 (150-450) k/uL MPV 7.5 Neutrophils % 78 % Lymphocytes % 11 % Monocytes % 8 % Eosinophils % 0 % Basophils % 1 % Neutrophils # 9.8 H (1.3-7.7) k/uL Lymphocytes # 1.4 (1.0-4.8) k/uL Monocytes # 1.0 (0-1.0) k/uL Eosinophils # 0.1 (0-0.7) k/uL Basophils # 0.1 (0-0.2) k/uL Sodium 139 (137-145) mmol/L Potassium 4.6 (3.5-5.1) mmol/L Chloride 102 (98-107) mmol/L Carbon Dioxide 25 (22-30) mmol/L Anion Gap 12 mmol/L BUN 37 H (7-17) mg/dL Creatinine 1.93 H (0.52-1.04) mg/dL Est GFR (CKD-EPI)AfAm 27 (>60 ml/min/1.73 sqM) Est GFR (CKD-EPI)NonAf 23 (>60 ml/min/1.73 sqM) Glucose 126 H (74-99) mg/dL Calcium 9.5 (8.4-10.2) mg/dL Total Bilirubin 1.1 (0.2-1.3) mg/dL AST 25 (14-36) U/L ALT 21 (4-34) U/L Alkaline Phosphatase 43 (38-126) U/L Total Protein 7.1 (6.3-8.2) g/dL Albumin 4.2 (3.5-5.0) g/dL Amylase 57 (30-110) U/L Lipase 69 (23-300) U/L Urine Color Light Red Urine Appearance Cloudy H (Clear) Urine pH 5.5 (5.0-8.0) Ur Specific [place] 1.015 (1.001-1.035) Urine Protein 1+ H (Negative) Urine Glucose (UA) Trace H (Negative) Urine Ketones Negative (Negative) Urine Blood Large H (Negative) Urine Nitrite Negative (Negative) Urine Bilirubin Negative (Negative) Urine Urobilinogen <2.0 (<2.0) mg/dL Ur Leukocyte Esterase Moderate H (Negative) Urine RBC >182 H (0-5) /hpf Urine WBC 21 H (0-5) /hpf Ur Squamous Epith Cells 4 (0-4) /hpf Urine Bacteria Rare H (None) /hpf Urine Mucus Rare H (None) /hpf Urine Yeast (Budding) Occasional H (None) /hpf Influenza Type A (PCR) (Not Detectd) Influenza Type B (PCR) (Not Detectd) RSV (PCR) (Not Detectd) SARS-CoV-2 (PCR) (Not Detectd) 02/01/23 Range/Units 23:19 WBC (3.8-10.6) k/uL RBC (3.80-5.40) m/uL Hgb (11.4-16.0) gm/dL Hct (34.0-46.0) % MCV (80.0-100.0) fL MCH (25.0-35.0) pg MCHC (31.0-37.0) g/dL RDW (11.5-15.5) % Plt Count (150-450) k/uL MPV Neutrophils % % Lymphocytes % % Monocytes % % Eosinophils % % Basophils % % Neutrophils # (1.3-7.7) k/uL Lymphocytes # (1.0-4.8) k/uL Monocytes # (0-1.0) k/uL Eosinophils # (0-0.7) k/uL Basophils # (0-0.2) k/uL Sodium (137-145) mmol/L Potassium (3.5-5.1) mmol/L Chloride (98-107) mmol/L Carbon Dioxide (22-30) mmol/L Anion Gap mmol/L BUN (7-17) mg/dL Creatinine (0.52-1.04) mg/dL Est GFR (CKD-EPI)AfAm (>60 ml/min/1.73 sqM) Est GFR (CKD-EPI)NonAf (>60 ml/min/1.73 sqM) Glucose (74-99) mg/dL Calcium (8.4-10.2) mg/dL Total Bilirubin (0.2-1.3) mg/dL AST (14-36) U/L ALT (4-34) U/L Alkaline Phosphatase (38-126) U/L Total Protein (6.3-8.2) g/dL Albumin (3.5-5.0) g/dL Amylase (30-110) U/L Lipase (23-300) U/L Urine Color Urine Appearance (Clear) Urine pH (5.0-8.0) Ur Specific [place] (1.001-1.035) Urine Protein (Negative) Urine Glucose (UA) (Negative) Urine Ketones (Negative) Urine Blood (Negative) Urine Nitrite (Negative) Urine Bilirubin (Negative) Urine Urobilinogen (<2.0) mg/dL Ur Leukocyte Esterase (Negative) Urine RBC (0-5) /hpf Urine WBC (0-5) /hpf Ur Squamous Epith Cells (0-4) /hpf Urine Bacteria (None) /hpf Urine Mucus (None) /hpf Urine Yeast (Budding) (None) /hpf Influenza Type A (PCR) Not Detected (Not Detectd) Influenza Type B (PCR) Not Detected (Not Detectd) RSV (PCR) Not Detected (Not Detectd) SARS-CoV-2 (PCR) Not Detected (Not Detectd) Disposition <Josette Joseph - Last Filed: 02/01/23 22:31> Is patient prescribed a controlled substance at d/c from ED?: No <Beka Rubalcava - Last Filed: 02/02/23 03:22> Clinical Impression: Urinary tract infection, Acute kidney injury Disposition: HOME SELF-CARE Condition: Good Instructions (If sedation given, give patient instructions): Acute Kidney Injury (DC), Urinary Tract Infection in Women (ED) Additional Instructions: As we discussed, your creatinine is elevated and he must have your labs rechecked in 2 days. If there is any worsening at all or if your symptoms recur return immediately. Prescriptions: Cephalexin [Keflex] 500 mg PO Q6HR #28 cap Referrals: Christel Wakefield MD [Primary Care Provider] - 1-2 days
[2023-02-01] MEDS ORDERED: ONDANSETRON 4 MG/2 ML VIAL IVP STA (23:17)
[2023-02-01] MEDS ORDERED: SODIUM CHLORIDE 0.9% 1,000 ML IV ONE (23:32)
[2023-02-02 00:19] LABS: Basophils # (A) 0.1 k/uL (0-0.2); Basophils % (A) 1 %; Eosinophils # (A) 0.1 k/uL (0-0.7); Eosinophils % (A) 0 %; HCT 42.8 % (34.0-46.0); HGB 14.3 gm/dL (11.4-16.0); Lymphocytes # (A) 1.4 k/uL (1.0-4.8); Lymphocytes % (A) 11 %; MCH 31.8 pg (25.0-35.0); MCHC 33.4 g/dL (31.0-37.0); MCV 95.4 fL (80.0-100.0); Mean Platelet Volume 7.5; Monocytes % (A) 8 %; Neutrophils # (A) 9.8 k/uL (1.3-7.7); Neutrophils % (A) 78 %; Platelet Count 243 k/uL (150-450); RBC 4.49 m/uL (3.80-5.40); RDW 12.8 % (11.5-15.5); WBC 12.5 k/uL (3.8-10.6)
[2023-02-02 00:35] LABS: ALT 21 U/L (4-34); AST 25 U/L (14-36); African American GFR (CKD) 27 (>60 ml/min/1.73 sqM); Albumin 4.2 g/dL (3.5-5.0); Alkaline Phosphatase 43 U/L (38-126); Amylase 57 U/L (30-110); Anion Gap 12 mmol/L; Blood Urea Nitrogen 37 mg/dL (7-17); Calcium 9.5 mg/dL (8.4-10.2); Carbon Dioxide 25 mmol/L (22-30); Chloride 102 mmol/L (98-107); Glucose 126 mg/dL (74-99); Lipase 69 U/L (23-300); Non-African American GFR(CKD) 23 (>60 ml/min/1.73 sqM); Potassium 4.6 mmol/L (3.5-5.1); Sodium 139 mmol/L (137-145); Total Bilirubin 1.1 mg/dL (0.2-1.3); Total Protein 7.1 g/dL (6.3-8.2)
[2023-02-02 00:55] LABS: Appearance,Urine Cloudy (Clear); Bacteria,Urine Rare /hpf; Bilirubin,Urine Negative (Negative); Blood,Urine Large (Negative); Budding Yeast,Urine Occasional /hpf; Color,Urine Light Red; Glucose,Urine (UA) Trace (Negative); Ketones,Urine Negative (Negative); Leukocyte Esterase,Urine Moderate (Negative); Mucus,Urine Rare /hpf; Nitrite,Urine Negative (Negative); PH, Urine 5.5 (5.0-8.0); Protein,Urine 1+ (Negative); RBC,Urine >182 /hpf (0-5); Specific Gravity,Urine 1.015 (1.001-1.035); Squamous Epithelial Cell,Urine 4 /hpf (0-4); Urobilinogen,Urine <2.0 mg/dL (<2.0); WBC,Urine 21 /hpf (0-5)
[2023-02-02 03:41] VITALS: BP 196/90; PULSE 78; RESP 17
== END 2023-02-02 03:39 | disposition home or self-care (01) ==
LOC: EC 21:26
DX: N39.0 Urinary tract infection, site not specified (principal); N17.9 Acute kidney failure, unspecified; I10 Essential (primary) hypertension; Z20.822 Contact with and (suspected) exposure to COVID-19; Z79.899 Other long term (current) drug therapy; Z88.2 Allergy status to sulfonamides; Z91.018 Allergy to other foods; Z88.8 Allergy status to other drugs, medicaments and biological substances; Z91.013 Allergy to seafood
CPT/HCPCS: 36415; 80053; 82150; 83690; 85025; 81001; 87086; 87077; 87186; 87636; 99284; 96374; 96375; 96361 ×2; J2405; J0696

== ENCOUNTER → 2023-08-05 | Outpatient (CLI) | payer MEDICARE, OTHER ==
--- NOTE | 2023-08-07 21:50 | CT ---
EXAMINATION TYPE: CT abdomen pelvis wo con CT DLP: 1160.6 mGycm, Automated exposure control for dose reduction was used. DATE OF EXAM: 08/05/2023 5:19 PM COMPARISON: None. CLINICAL INDICATION:Female, 88 years old with history of N20.0 CALCULUS OF KIDNEY; Bilateral flank pa in TECHNIQUE: Axial CT of the abdomen and pelvis. Sagittal and coronal reformats were created on a [employer] workstation. Contrast used: mL of , (none if empty) Oral contrast used: without Oral Contrast (none if empty) FINDINGS: LOWER CHEST: Lung bases show mild subsegmental atelectasis and/or scarring. Heart size upper normal. Mildly prominent pericardial fat without effusion seen. ABDOMEN LIVER: Unremarkable GALLBLADDER AND BILE DUCTS: Contracted gallbladder. No calcified stones or biliary dilatation is evid ent. PANCREAS: Unremarkable. SPLEEN: Unremarkable spleen. 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 ADRENAL GLANDS: Unremarkable. KIDNEYS AND URETERS: Kidneys have a somewhat lobular configuration and there are likely underlying cy sts. There are multiple small radiodense foci in the kidneys which may represent calcifications but s ome could represent milk of calcium. Largest in the right lower pole (irregularly-shaped) is up to 10 x 6 mm, largest in the left lower pole (irregularly- shaped) is up to 10 x 4 mm. There are bilateral extrarenal pelvises without evidence of hydronephrosis or ureteral calculi. Multiple pelvic phleboli ths are noted. PELVIS BLADDER: Unremarkable. No bladder calculi are identified. REPRODUCTIVE: Uterus and probably the ovaries are absent. No suggestion of pelvic mass. ABDOMEN & PELVIS STOMACH AND BOWEL: Stomach is mildly distended with heterogeneous material, likely foodstuffs and med ication. No significant distention of small bowel to suggest obstruction. The appendix is not seen bu t there is no inflammatory process identified. Moderate stool throughout the colon. Several diverticu la are present, mostly in the sigmoid region, without clear signs of inflammation. PERITONEUM/RETROPERITONEUM: No evidence of pneumoperitoneum or free fluid. VASCULATURE: Mild to moderate atherosclerotic calcifications are present throughout the abdominal aor ta and its branches. No evidence of aortic aneurysm. LYMPH NODES: No enlarged nodes by CT size criteria. SOFT TISSUE/ABDOMINAL WALL: Some portions are beyond the field of view but no acute or concerning abn ormality is seen. MUSCULOSKELETAL: No acute osseous abnormality. Moderate to severe degenerative changes of the visuali zed spine with normal AP alignment except for trace degenerative anterolisthesis L5 on S1. There is [id number] levocurvature in the upper lumbar region. IMPRESSION: 1. Small nonobstructing bilateral renal calculi. 2. Other chronic and likely incidental findings, as described above.
== END | disposition home or self-care (01) ==
LOC: RADCTMAIN 16:39
PROVIDERS: ATTEND Urology
DX: N20.0 Calculus of kidney (principal)
CPT/HCPCS: 74176

== ENCOUNTER → 2023-10-21 | Outpatient (CLI) | payer MEDICARE, OTHER ==
--- NOTE | 2023-10-22 08:38 | MM ---
Reason for Exam: Screening (asymptomatic). Last mammogram was performed 1 year(s) and 1 month(s) ago. Patient History: Menarche at age 15. First Full-Term at age 24. Left ovary removed at age 37. Right ovary removed at age 37. Hysterectomy at age 37. Postmenopausal. Patient has history of breast feeding. Other cancer, age 75. Patient used Estrogen for 3 years. Prior Study Comparison: 09/13/2020 Bilateral Screening Mammogram, [facility]. 09/16/2021 Bilateral MG 3D screening mammo w/cad, [facility]. 09/29/2022 Bilateral MG 3D screening mammo w/cad, [facility]. Tissue Density: The breasts are heterogeneously dense, which may obscure small masses. Findings: Analyzed By CAD. There is no suspicious group of microcalcifications or new suspicious mass in either breast. Overall Assessment: Benign, BI-RAD 2 Management: Screening Mammogram of both breasts in 1 year. . Patient should continue monthly self-breast exams. A clinical breast exam by your physician is recommended on an annual basis. This exam should not preclude additional follow-up of suspicious palpable abnormalities. Note on Bela scores and lifetime risk: 1. A Bela score greater than 3% is considered moderate risk. If this is the case, consider specialist referral to assess eligibility for a risk reducing agent. 2. If overall lifetime risk for the development of breast cancer is 20% or higher, the patient may qualify for future screening with alternating mammogram and breast MRI. Electronically signed and approved by: Enrike Blackwell M.D. Radiologis
== END | disposition home or self-care (01) ==
LOC: RADMAMWWP 08:41
PROVIDERS: ATTEND Family Medicine
DX: Z12.31 Encounter for screening mammogram for malignant neoplasm of breast
CPT/HCPCS: 77063; 77067